=== PATIENT | male | born 1960 | race Caucasian/White ===

== ENCOUNTER → 2016-12-23 | Outpatient (CLI) | payer MEDICARE ==
[~2016-12-23] MED LIST: CYCL10TA9 PO; HYDR-2890 PO; HYDR-3720 PO; OXYC1TAB87 PO
--- NOTE | 2016-12-23 13:19 | Diagnostic Imaging Report ---
EXAMINATION: Two views of the right hip. INDICATION: Pelvic pain. Right hip pain. FINDINGS: There are prominent arthritic changes seen in the right hip. The erosive components are more prominent compared to the 07/31/2015 exam which raises the possibility of an erosive arthritis rather than degenerative osteoarthritis with subchondral cysts. There is moderate joint space narrowing of the medial aspect. Prominent lucency along the right aspect of the sacrum is probably exaggerated by overlying bowel loops with a poorly defined joint line seen. This could relate to erosions in the SI joints or fusion. IMPRESSION: Increased erosive component in the right hip joint is concerning for inflammatory arthritis. There is also suggestion of right-sided sacroiliitis or SI joint fusion. Dictated by: Dictated on workstation # [id number]
--- NOTE | 2016-12-23 13:52 | Diagnostic Imaging Report ---
INDICATION: Chronic low back pain. Right hip pain. No known injury. TECHNIQUE: AP, Lateral and Spot imaging of the lumbar spine CORRELATION STUDY: 02/09/2015. FINDINGS: Lumbar spinal alignment and curvature relatively anatomic. Lumbar vertebral body heights are maintained. Diffuse thin bridging syndesmophytes are noted throughout the lumbar spine. Disc spaces overall appear to be fairly stable and relatively anatomic. Mild asymmetric disc space narrowing suggested at L5-S1 level. There are diffuse hypertrophic changes about the posterior elements. There appears to be likely ossification through the posterior elements as well. There is some ossification superimposed over the neural foramina. There may also be a somewhat overall small spinal canal. SI joints are also fused. Cholecystectomy clips in the right upper quadrant. Additional clips over the left hemipelvis. IMPRESSION: 1. Negative for acute abnormality about the lumbar spine. 2. There is again noted diffuse thin syndesmophytes and fusion across the disc spaces of the lumbar spine as well as bilateral sacroiliac joint fusion. Features are most consistent with underlying ankylosing spondylolysis. 3. Additionally, there appears to be likely bony fusion across the posterior elements with some prominent appearance with hypertrophic facet arthropathy. Patient is suspected to be with narrowing of the spinal canal and/or foramina as well. Also there may be chronically narrowed spinal canal accentuating this narrowing. Dictated by: Dictated on workstation # [id number]
== END ==
LOC: RAD 12:40
PROVIDERS: ATTEND Nurse Practitioner Family
DX: M85.88 Other specified disorders of bone density and structure, other site (principal); M25.78 Osteophyte, vertebrae; M48.06 Spinal stenosis, lumbar region; Z90.49 Acquired absence of other specified parts of digestive tract
CPT/HCPCS: 72100; 73502

== ENCOUNTER → 2017-01-29 | Outpatient (CLI) | payer MEDICARE ==
[~2017-01-29] MED LIST changes: +GADOBUTROL 7.5 MMOL/7.5 ML (GADAVIST) VIAL IV ONE
--- NOTE | 2017-01-29 15:26 | Diagnostic Imaging Report ---
CLINICAL INDICATION: Patient states that he has been falling. Patient has no history of brain surgery but has previous cervical spine surgeries. EXAM: MRI of the brain performed without and with 5 cc of Gadavist IV contrast. Sequences include axial DWI, ADC map, coronal gradient echo, axial T2, axial FLAIR, axial T1, axial T1 post IV contrast, coronal T1 fat-sat post IV contrast, and sagittal T1 post IV contrast. COMPARISON: None. FINDINGS: There is no evidence of acute cerebral infarct, intracranial hemorrhage, or gross mass effect. There are multiple focal areas of high T2 signal white matter changes in the subcortical and deep white matter of both cerebral hemispheres with the frontal lobes affected the most. These are suspected to be related to chronic small vessel ischemic disease. There is normal macdonald-white matter distinction. The brain parenchymal volume appears appropriate for patient's age. There is no significant midline shift or herniation. The pituitary gland, sella, and suprasellar regions are unremarkable as visualized. The [place] of Prakash vascular structures show no gross abnormality as visualized. There is no evidence of hydrocephalus. Small cavum septum pellucidum is seen. The basal cisterns are unremarkable. The skull, extracranial soft tissue, and orbits are unremarkable. There is mild mucosal thickening involving the ethmoid sinus and left maxillary sinus. IMPRESSION: 1: Unremarkable MRI of the brain for age. There is no abnormal IV contrast enhancement. 2: There is mild brain parenchymal chronic small vessel ischemic disease. Dictated by: Dictated on workstation # [id number]
== END ==
LOC: RAD 08:55
DX: R26.89 Other abnormalities of gait and mobility (principal)
CPT/HCPCS: 70553

== ENCOUNTER → 2017-02-05 | Outpatient (CLI) | payer MEDICARE ==
[~2017-02-05] MED LIST changes: -GADOBUTROL 7.5 MMOL/7.5 ML (GADAVIST) VIAL IV ONE
--- NOTE | 2017-02-05 20:13 | Diagnostic Imaging Report ---
EXAMINATION: AP and frog lateral views of the right hip. INDICATION: Fall. Extreme hip pain. FINDINGS: There is severe right hip osteoarthritis changes with sclerosis and subchondral cyst formation seen. There is a prominent erosive component seen similar to 12/23/16. No fracture or dislocation. No radiopaque foreign body. Mild degenerative changes at the symphysis pubis are seen. IMPRESSION: Erosive and sclerotic changes are seen in the right hip similar to 12/23/16. 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 Correlate clinically. Dictated by: Dictated on workstation # [id number]
== END ==
LOC: RAD 14:54
DX: M16.11 Unilateral primary osteoarthritis, right hip (principal)
CPT/HCPCS: 73502

== ENCOUNTER 2017-03-26 11:28 | Outpatient (RCR) | payer MEDICARE | END 2017-04-07 16:41 | disposition home or self-care (01) | PROVIDERS: ATTEND Orthopaedic Surgery | DX: M16.11 Unilateral primary osteoarthritis, right hip (principal); M45.9 Ankylosing spondylitis of unspecified sites in spine ==

== ENCOUNTER 2017-05-19 18:14 | Emergency (ER) | payer MEDICARE ==
[~2017-05-19] VITALS: Ht 165.1 cm; Wt 57.2 kg
--- OUTSIDE RECORDS SUMMARY | 2017-05-19 18:24 | XMS REPORT | Continuity of Care Document ---
Author Author [facility] Organization [facility] Address Unknown Phone Unavailable Allergies Active Description Code Type Severity Reaction Onset Reported/Identified Relationship to Patient Clinical Status Yes No Known Drug Allergies [id number] Drug Allergy Unknown N/A 07/10/2011 Medications There is no data. 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 07/10/2011 Ot 724.2 LUMBAGO 09/07/2012 Ot 238.71 ESSENTIAL THROMBOCYTHEMIA 09/07/2012 Ot 272.4 HYPERLIPIDEMIA NEC/NOS 09/07/2012 Ot 288.60 LEUKOCYTOSIS , UNSPECIFIED 09/07/2012 Ot 716.90 ARTHROPATHY NOS-UNSPEC 09/07/2012 Ot 723.1 CERVICALGIA 09/07/2012 Ot V45.4 ARTHRODESIS STATUS 09/07/2012 Ot V58.69 OTH MED,LT, CURRENT USE 11/26/2014 Ot 719.41 11/26/2014 Ot 959.2 11/26/2014 Ot E000.8 11/26/2014 Ot E849.0 11/26/2014 Ot E928.9 11/26/2014 Ot 723.1 11/26/2014 Ot 720.0 11/26/2014 Ot 722.0 11/26/2014 Ot 305.1 11/26/2014 Ot 783.21 11/26/2014 Ot 786.2 11/26/2014 Ot 288.60 11/26/2014 Ot 288.60 11/26/2014 Ot 288.60 11/26/2014 Ot 733.90 11/26/2014 Ot V45.4 11/26/2014 Ot 719.41 11/26/2014 Ot 288.60 11/26/2014 LOUIE LOPEZ, NOMAN Haines Ot 723.1 CERVICALGIA 11/26/2014 Ot 719.41 11/26/2014 Ot 959.2 11/26/2014 Ot E000.8 11/26/2014 Ot E849.0 11/26/2014 Ot E928.9 11/26/2014 Ot 723.1 11/26/2014 Ot 720.0 11/26/2014 Ot 722.0 11/26/2014 Ot 305.1 11/26/2014 Ot 783.21 11/26/2014 Ot 786.2 11/26/2014 Ot 288.60 11/26/2014 Ot 288.60 11/26/2014 Ot 288.60 11/26/2014 Ot 733.90 11/26/2014 Ot V45.4 11/26/2014 Ot 719.41 11/26/2014 Ot 288.60 11/26/2014 Ot 719.41 11/26/2014 Ot 959.2 11/26/2014 Ot E000.8 11/26/2014 Ot E849.0 11/26/2014 Ot E928.9 11/26/2014 Ot 723.1 11/26/2014 Ot 720.0 11/26/2014 Ot 722.0 11/26/2014 Ot 305.1 11/26/2014 Ot 783.21 11/26/2014 Ot 786.2 11/26/2014 Ot 288.60 11/26/2014 Ot 288.60 11/26/2014 Ot 288.60 11/26/2014 Ot 733.90 11/26/2014 Ot V45.4 11/26/2014 Ot 719.41 11/26/2014 Ot 288.60 12/27/2014 Ot 719.41 12/27/2014 Ot 959.2 12/27/2014 Ot E000.8 12/27/2014 Ot E849.0 12/27/2014 Ot E928.9 12/27/2014 Ot 723.1 12/27/2014 Ot 720.0 12/27/2014 Ot 722.0 12/27/2014 Ot 305.1 12/27/2014 Ot 783.21 12/27/2014 Ot 786.2 12/27/2014 Ot 288.60 12/27/2014 Ot 288.60 12/27/2014 Ot 288.60 12/27/2014 Ot 733.90 12/27/2014 Ot V45.4 12/27/2014 Ot 719.41 12/27/2014 Ot 288.60 12/27/2014 JANIYA CAMPOS APRN Ot 723.1 12/27/2014 JANIYA CAMPOS APRN Ot V45.4 12/27/2014 JANIYA CAMPOS APRN Ot 723.1 12/27/2014 JANIYA CAMPOS APRN Ot V45.4 12/27/2014 Ot 719.41 12/27/2014 Ot 959.2 12/27/2014 Ot E000.8 12/27/2014 Ot E849.0 12/27/2014 Ot E928.9 12/27/2014 Ot 723.1 12/27/2014 Ot 720.0 12/27/2014 Ot 722.0 12/27/2014 Ot 305.1 12/27/2014 Ot 783.21 12/27/2014 Ot 786.2 12/27/2014 Ot 288.60 12/27/2014 Ot 288.60 12/27/2014 Ot 288.60 12/27/2014 Ot 733.90 12/27/2014 Ot V45.4 12/27/2014 Ot 719.41 12/27/2014 Ot 288.60 12/27/2014 JANIYA CAMPOS APRN Ot 723.1 12/27/2014 JANIYA CAMPOS APRN Ot V45.4 12/27/2014 Ot 719.41 12/27/2014 Ot 959.2 12/27/2014 Ot E000.8 12/27/2014 Ot E849.0 12/27/2014 Ot E928.9 12/27/2014 Ot 723.1 12/27/2014 Ot 720.0 12/27/2014 Ot 722.0 12/27/2014 Ot 305.1 12/27/2014 Ot 783.21 12/27/2014 Ot 786.2 12/27/2014 Ot 288.60 12/27/2014 Ot 288.60 12/27/2014 Ot 288.60 12/27/2014 Ot 733.90 12/27/2014 Ot V45.4 12/27/2014 Ot 719.41 12/27/2014 Ot 288.60 12/27/2014 JANIYA CAMPOS APRN Ot 723.1 12/27/2014 JANIYA CAMPOS APRN Ot V45.4 12/27/2014 Ot 719.41 12/27/2014 Ot 959.2 12/27/2014 Ot E000.8 12/27/2014 Ot E849.0 12/27/2014 Ot E928.9 12/27/2014 Ot 723.1 12/27/2014 Ot 720.0 12/27/2014 Ot 722.0 12/27/2014 Ot 305.1 12/27/2014 Ot 783.21 12/27/2014 Ot 786.2 12/27/2014 Ot 288.60 12/27/2014 Ot 288.60 12/27/2014 Ot 288.60 12/27/2014 Ot 733.90 12/27/2014 Ot V45.4 12/27/2014 Ot 719.41 12/27/2014 Ot 288.60 12/27/2014 JANIYA CAMPOS RN BEHAVIOR[facility] Ot 723.1 12/27/2014 JANIYA CAMPOS APRN Ot V45.4 02/09/2015 Ot 719.41 02/09/2015 Ot 959.2 02/09/2015 Ot E000.8 02/09/2015 Ot E849.0 02/09/2015 Ot E928.9 02/09/2015 Ot 723.1 02/09/2015 Ot 720.0 02/09/2015 Ot 722.0 02/09/2015 Ot 305.1 02/09/2015 Ot 783.21 02/09/2015 Ot 786.2 02/09/2015 Ot 288.60 02/09/2015 Ot 288.60 02/09/2015 Ot 288.60 02/09/2015 Ot 733.90 02/09/2015 Ot V45.4 02/09/2015 Ot 719.41 02/09/2015 Ot 288.60 02/09/2015 JANIYA CAMPOS RN [facility] Ot 723.1 02/09/2015 JANIYA CAMPOS APRN Ot V45.4 03/01/2015 JANIYA CAMPOS RN [facility] Ot 715.35 03/01/2015 JANIYA CAMPOS RN [facility] Ot 724.2 03/08/2015 JANIYA CAMPOS APRN Ot 719.45 08/18/2015 JANIYA CAMPOS [facility] Ot M81.0 08/22/2015 ALBERT LOPZE, ALEKSANDER Marte Ot M25.511 08/22/2015 ALBERT LOPEZ, ALEKSANDER Marte Ot M25.551 09/06/2015 JANIYA CAMPOS RN [facility] Ot M81.0 10/05/2015 Ot 723.1 CERVICALGIA 10/05/2015 Ot 720.0 ANKYLOSING SPONDYLITIS 10/05/2015 Ot 722.0 CERVICAL DISC DISPLACMNT 10/05/2015 Ot 305.1 TOBACCO USE DISORDER 10/05/2015 Ot 783.21 LOSS OF WEIGHT 10/05/2015 Ot 786.2 COUGH 10/05/2015 Ot 288.60 LEUKOCYTOSIS , UNSPECIFIED 10/05/2015 Ot 288.60 LEUKOCYTOSIS , UNSPECIFIED 10/05/2015 Ot 288.60 LEUKOCYTOSIS , UNSPECIFIED 10/05/2015 Ot 733.90 BONE CARTILAGE DIS NOS 10/05/2015 Ot V45.4 ARTHRODESIS STATUS 10/05/2015 Ot 719.41 JOINT PAIN- SHLDER 10/05/2015 Ot 288.60 LEUKOCYTOSIS , UNSPECIFIED 10/05/2015 JANIYA CAMPOS APRN Ot 723.1 CERVICALGIA 10/05/2015 JANIYA CAMPOS APRN Ot V45.4 ARTHRODESIS STATUS 10/05/2015 JANIYA CAMPOS APRN Ot 715.35 LOC OSTEOARTH NOS-PELVIS 10/05/2015 JANIYA CAMPOS APRN Ot 724.2 LUMBAGO 10/05/2015 JANIYA CAMPOS APRN Ot 719.45 JOINT PAIN-PELVIS 10/05/2015 ALBERT LOPEZ, ALEKSANDER Marte Ot M25.511 PAIN IN RIGHT SHOULDER 10/05/2015 ALEKSANDER PRICE MD Ot M25.551 PAIN IN RIGHT HIP 10/05/2015 JANIYA CAMPOS APRN Ot M81.0 AGE-RELATED OSTEOPOROSIS W/O CURRENT PAT 12/23/2016 Ot 288.60 LEUKOCYTOSIS , UNSPECIFIED 12/23/2016 Ot 733.90 BONE CARTILAGE DIS NOS 12/23/2016 Ot V45.4 ARTHRODESIS STATUS 12/23/2016 Ot 719.41 JOINT PAIN- SHLDER 12/23/2016 Ot 288.60 LEUKOCYTOSIS , UNSPECIFIED 12/23/2016 JANIYA CAMPOS RN [facility] Ot 723.1 CERVICALGIA 12/23/2016 JANIYA CAMPOS APRN Ot V45.4 ARTHRODESIS STATUS 12/23/2016 JANIYA CAMPOS APRN Ot 715.35 LOC OSTEOARTH NOS-PELVIS 12/23/2016 JANIYA CAMPOS APRN Ot 724.2 LUMBAGO 12/23/2016 JANIYA CAMPOS APRN Ot 719.45 JOINT PAIN-PELVIS 12/23/2016 ALEKSANDER PRICE MD Ot M25.511 PAIN IN RIGHT SHOULDER 12/23/2016 ALEKSANDER PRICE MD Ot M25.551 PAIN IN RIGHT HIP 12/23/2016 JANIYA CAMPOS APRN Ot M81.0 AGE-RELATED OSTEOPOROSIS W/O CURRENT PAT 01/21/2017 JANIYA CAMPOS APRN Ot M25.78 OSTEOPHYTE, VERTEBRAE 01/21/2017 JANIYA CAMPOS APRN Ot M48.06 SPINAL STENOSIS, LUMBAR REGION 01/21/2017 JANIYA CAMPOS APRN Ot M85.88 OT DISRD OF BONE DENSITY AND STRUCTURE, 01/21/2017 JANIYA CAMPOS APRN Ot Z90.49 ACQUIRED ABSENCE OF OTHER SPECIFIED PART 02/19/2017 ALEKSANDER PRICE MD Ot R26.89 OTHER ABNORMALITIES OF GAIT AND MOBILITY 03/03/2017 ALEKSANDER PRICE MD Ot M16.11 UNILATERAL PRIMARY OSTEOARTHRITIS, RIGHT 03/07/2017 KAYLIN MCCLELLAN MD Ot M16.11 UNILATERAL PRIMARY OSTEOARTHRITIS, RIGHT 03/07/2017 KAYLIN MCCLELLAN MD Ot M45.9 ANKYLOSING SPONDYLITIS OF UNSPECIFIED SI 04/07/2017 KAYLIN MCCLELLAN MD Ot M16.11 UNILATERAL PRIMARY OSTEOARTHRITIS, RIGHT 04/07/2017 KAYLIN MCCLELLAN MD, Ot M45.9 ANKYLOSING SPONDYLITIS OF UNSPECIFIED SI Procedures There is no data. Results There is no data. Encounters ACCT No. Visit Date/Time Discharge Status Pt. Type Provider Facility Loc./Unit Complaint [id number] 03/26/2017 11:28:00 04/07/2017 16:41:00 DIS Outpatient KAYLIN MCCLELLAN MD [facility] REHAB ADVANCED OA R HIP; ANKYLOSING SPONDYLITIS [id number] 02/05/2017 14:54:00 02/05/2017 23:59:59 CLS Outpatient ALEKSANDER PRICE MD [facility] RAD S73.101A [id number] 01/29/2017 08:55:00 01/29/2017 23:59:59 CLS Outpatient ALEKSANDER PRICE MD [facility] RAD R26.89 [id number] 12/23/2016 12:40:00 12/23/2016 23:59:59 CLS Outpatient JANIYA CAMPOS RN [facility] RAD HIP PAIN LOW BACK PAIN [id number] 08/17/2015 11:11:00 08/17/2015 23:59:59 CLS Outpatient JANIYA CAMPOS RN [facility] RAD OSTEOPOROSIS [id number] 07/31/2015 09:44:00 07/31/2015 23:59:59 CLS Outpatient ALEKSANDER PRICE MD [facility] RAD PAIN IN RT SHOULDER, PAIN IN RT HIP [id number] 02/16/2015 12:07:00 02/16/2015 23:59:59 CLS Outpatient JANIYA CAMPOS RN [facility] RAD HIP PAIN [id number] 02/09/2015 13:06:00 02/09/2015 23:59:59 CLS Outpatient JANIYA CAMPOS RN [facility] RAD LBP,PAIN IN JOINT INVOLVING PELVIC REGION [id number] 11/30/2014 12:54:00 11/30/2014 23:59:59 CLS Outpatient JANIYA CAMPOS RN [facility] RAD CERVICAL PAIN, [id number] 11/26/2014 20:22:00 11/26/2014 21:00:00 DIS Emergency NOMAN PALMA MD [facility] ER PAIN NECK TO KNEES [id number] 09/08/2012 00:00:00 Document Registration [id number] 07/20/2012 09:08:00 Document Registration [id number] 07/03/2012 09:54:00 Document Registration [id number] 06/25/2012 09:35:00 Document Registration [id number] 07/10/2011 14:42:00 Document Registration [id number] 05/21/2011 09:48:00 Document Registration [id number] 05/14/2011 09:43:00 Document Registration [id number] 05/13/2011 09:18:00 Document Registration [id number] 04/01/2011 15:21:00 Document Registration [id number] 03/26/2011 15:12:00 Document Registration [id number] 01/08/2010 14:19:00 Document Registration
[2017-05-19] MEDS ORDERED: NS IV 1000 ML 1,000 ML IV SCH (20:00)
--- NOTE | 2017-05-19 20:00 | ED General ---
General Chief Complaint: Fever-Adult/Adol Stated Complaint: RT LEG PAIN POST OP,SORE THROAT Nursing Triage Note: PT C/O COUGH/CONGETSION/FEVER FOR A COUPLE OF DAYS. PT IS APPROX 1 WEEK S/P TRH. Nursing Sepsis Screen: No Definite Risk Source of Information: Patient Exam Limitations: No Limitations History of Present Illness Time Seen by Provider: 19:59 Initial Comments To ER with reports of a cough, congestion, fever for the past few days. Patient is one week post total right hip replacement. Cough is productive of phlegm. Also has some right leg swelling. Timing/Duration: 1-2 Days Severity: Moderate Allergies and Home Medications Allergies Coded Allergies: No Known Drug Allergies (Unverified , 07/10/11) Home Medications Hydrocodone Bit/Acetaminophen 1 Each Tablet, 1 EACH PO Q6H PRN, (Reported) Hydrocodone Bit/Acetaminophen 1 Each Tablet, 1 EACH PO Q4-6HR PRN for PAIN, #20 Prescribed by: NOMAN PALMA on 11/26/142039 Constitutional: see HPI, chills, fever EENTM: see HPI, nose congestion Respiratory: see HPI, cough Cardiovascular: no symptoms reported Genitourinary: no symptoms reported Musculoskeletal: no symptoms reported Skin: no symptoms reported Psychiatric/Neurological: No Symptoms Reported Hematologic/Lymphatic: No Symptoms Reported Past Uipsysa-Ejclgy-Jdhckw Hx Patient Social History Alcohol Use: Denies Use Recreational Drug Use: No Smoking Status: Current Everyday Smoker Type Used: Cigarettes 2nd Hand Smoke Exposure: No Recent Foreign Travel: No Contact w/Someone Who Travel: No Recent Infectious Disease Expo: No Recent Hopitalizations: Yes Seasonal Allergies Seasonal Allergies: No Surgeries Surgeries: Gallbladder, Orthopedic Respiratory History of Respiratory Disorde: No Cardiovascular History of Cardiac Disorders: No Neurological History of Neurological Disord: No Reproductive System Hx Reproductive Disorders: No Gastrointestinal History of Gastrointestinal Di: No Musculoskeletal History of Musculoskeletal Dis: Yes (NECK SX) Musculoskeletal Disorders: Arthritis Endocrine History of Endocrine Disorders: No Cancer History of Cancer: No Psychosocial History of Psychiatric Problem: No Integumentary History of Skin or Integumenta: No Blood Transfusions History of Blood Disorders: No Physical Exam Vital Signs Vital Sign - Last 12Hours 05/19/17 19:00 Temp 100.2 Pulse 76 Resp 18 B/P (MAP) 138/77 (97) Pulse Ox 97 O2 Delivery Room Air Capillary Refill : Less Than 3 Seconds General Appearance: No Apparent Distress, WD/WN Eyes: Bilateral Eye Normal Inspection, Bilateral Eye PERRL, Bilateral Eye EOMI HEENT: PERRL/EOMI, TMs Normal Neck: Full Range of Motion, Normal Inspection Respiratory: Normal Breath Sounds, No Accessory Muscle Use, No Respiratory Distress Cardiovascular: Regular Rate, Rhythm, Normal Peripheral Pulses Gastrointestinal: Normal Bowel Sounds, Non Tender, Soft Extremity: Normal Capillary Refill, Normal Inspection, Other (to the lateral right hip is a Tegaderm over the incision site. There is a fair amount of ecchymosis and swelling confined to the hip but no obvious drainage or erythema. ) Neurologic/Psychiatric: Alert, Oriented x3, No Motor/Sensory Deficits Skin: Normal Color, Warm/Dry Progress/Results/Core Measures Suspected Sepsis Recent Fever Within 48 Hours: Yes Infection Criteria Present: Suspected New Infection New/Unexplained Altered Menta: No Sepsis Screen: No Definite Risk Sepsis Diagnosis: SIRS Temperature:100.2 Pulse: 76 Respiratory Rate: 18 Laboratory Tests 05/19/17 20:49: White Blood Count 5.3 Blood Pressure 138 /77 Mean: 97 Laboratory Tests 05/19/17 20:49: Creatinine 0.73, Platelet Count 304 Results/Orders Lab Results Laboratory Tests Test 05/19/17 20:49 Range/Units White Blood Count 5.3 4.3-11.0 10^3/uL Red Blood Count 3.66 L 4.35-5.85 10^6/uL Hemoglobin 10.5 L 13.3-17.7 G/DL Hematocrit 32 L 40-54 % Mean Corpuscular Volume 87 80-99 FL Mean Corpuscular Hemoglobin 29 25-34 PG Mean Corpuscular Hemoglobin Concent 33 32-36 G/DL Red Cell Distribution Width 16.0 H 10.0-14.5 % Platelet Count 304 130-400 10^3/uL Mean Platelet Volume 9.5 7.4-10.4 FL Neutrophils (%) (Auto) 61 42-75 % Lymphocytes (%) (Auto) 23 12-44 % Monocytes (%) (Auto) 14 H 0-12 % Eosinophils (%) (Auto) 2 0-10 % Basophils (%) (Auto) 0 0-10 % Neutrophils # (Auto) 3.2 1.8-7.8 X 10^3 Lymphocytes # (Auto) 1.2 1.0-4.0 X 10^3 Monocytes # (Auto) 0.8 0.0-1.0 X 10^3 Eosinophils # (Auto) 0.1 0.0-0.3 10^3/uL Basophils # (Auto) 0.0 0.0-0.1 10^3/uL Sodium Level 138 135-145 MMOL/L Potassium Level 3.9 3.6-5.0 MMOL/L Chloride Level 100 98-107 MMOL/L Carbon Dioxide Level 27 21-32 MMOL/L Anion Gap 11 5-14 MMOL/L Blood Urea Nitrogen 7 7-18 MG/DL Creatinine 0.73 0.60-1.30 MG/DL Estimat Glomerular Filtration Rate > 60 BUN/Creatinine Ratio 10 Glucose Level 100 70-105 MG/DL Calcium Level 8.2 L 8.5-10.1 MG/DL Micro Results Microbiology 05/19/17 Influenza Types A,B Antigen (NILA) - Final, Complete My Orders Orders - BRYNN BORREGO APRN Influenza A And B Antigens (05/19/17 19:39) Chest Pa/Lat (2 View) (05/19/17 19:39) Saline Lock/Iv-Start (05/19/17 19:58) Cbc With Automated Diff (05/19/17 19:58) Basic Metabolic Panel (05/19/17 19:58) Ns Iv 1000 Ml (Sodium Chloride 0.9%) (05/19/17 20:00) Us Venous Lower Ext Rt (05/19/17 19:58) Vital Signs/I&O Vital Sign - Last 12Hours 05/19/17 19:00 Temp 100.2 Pulse 76 Resp 18 B/P (MAP) 138/77 (97) Pulse Ox 97 O2 Delivery Room Air Capillary Refill : Less Than 3 Seconds Blood Pressure Mean: 97 Diagnostic Imaging Diagonstic Imaging: Xray Plain Films/CT/US/NM/MRI: chest Comments NAME: ROSHAN ORTEGA [facility] REC#: [id number] PT STATUS: REG ER : 1960 PHYSICIAN: BRYNN BORREGO APRN ADMIT DATE: 05/19/17/ER Draft Date of Exam:05/19/17 CHEST PA/LAT (2 VIEW) INDICATION: Weakness, fever. COMPARISON: 05/13/2011. FINDINGS: Frontal and lateral views of the chest demonstrate small effusion in the left lung base. No obvious infiltrate is identified. The heart is normal. The right lung is clear. There is no pneumothorax. IMPRESSION: Small effusion in the left lung base. Followup recommended. Dictated on workstation # [id number] Dict: 05/19/172002 Trans: 05/19/172006 [facility] [id number] Interpreted by: ANDRY MOROCHO Electronically signed by: Departure Impression Impression: Primary Impression: Postoperative pain Additional Impression: Bronchitis Disposition: HOME, SELF-CARE Condition: Stable (yes) Departure-Patient Inst. Decision time for Depature: 21:05 Referrals: ALEKSANDER PRICE MD (PCP/Family) Primary Care Physician Patient Instructions: Acute Bronchitis, Adult (DC) Add. Discharge Instructions: 1. Use Benadryl as needed for nasal congestion. Your hydrocodone prescription should help control the cough. We will also prescribe an antibiotic. All discharge instructions reviewed with patient and/or family. Voiced understanding. Scripts Cephalexin (Keflex) 500 Mg Capsule 500 MG PO TID, #15 CAP Prov: BRYNN BORREGO [employer] 05/19/17 BRYNN BORREGO [employer] May 19, 2017 20:00
--- NOTE | 2017-05-19 20:07 | Diagnostic Imaging Report ---
INDICATION: Weakness, fever. COMPARISON: 05/13/2011. FINDINGS: Frontal and lateral views of the chest demonstrate small effusion in the left lung base. No obvious infiltrate is identified. The heart is normal. The right lung is clear. There is no pneumothorax. IMPRESSION: Small effusion in the left lung base. Followup recommended. Dictated by: Dictated on workstation # [id number]
[2017-05-19 21:00] LABS: BASOPHILS % (AUTO) 0 % (0-10); EOSINOPHILS # (AUTO) 0.1 10^3/uL (0.0-0.3); EOSINOPHILS % (AUTO) 2 % (0-10); LYMPHOCYTES # (AUTO) 1.2 X 10^3 (1.0-4.0); LYMPHOCYTES % (AUTO) 23 % (12-44); MEAN CORPUSCULAR HEMOGLOBIN 29 PG (25-34); MEAN CORPUSCULAR HGB CONC 33 G/DL (32-36); MEAN CORPUSCULAR VOLUME 87 FL (80-99); MEAN PLATELET VOLUME 9.5 FL (7.4-10.4); MONOCYTES # (AUTO) 0.8 X 10^3 (0.0-1.0); MONOCYTES % (AUTO) 14 % (0-12); NEUTROPHILS # (AUTO) 3.2 X 10^3 (1.8-7.8); NEUTROPHILS % (AUTO) 61 % (42-75); PLATELET COUNT 304 10^3/uL (130-400); RED BLOOD COUNT 3.66 10^6/uL (4.35-5.85); WHITE BLOOD COUNT 5.3 10^3/uL (4.3-11.0)
--- NOTE | 2017-05-19 21:02 | Diagnostic Imaging Report ---
PROCEDURE: US right lower extremity venous. TECHNIQUE: Multiple real-time grayscale images were obtained over the right lower extremity in various projections. Additional duplex Doppler and color Doppler images were also obtained. INDICATION: Right lower extremity swelling and pain. COMPARISON: None. FINDINGS: The visualized deep and superficial venous system is patent. There is no mass or DVT. IMPRESSION: Negative right lower extremity venous Doppler. Dictated by: Dictated on workstation # [id number]
[2017-05-19 21:16] LABS: ANION GAP 11 MMOL/L (5-14); BLOOD UREA NITROGEN 7 MG/DL (7-18); BUN/CREATININE RATIO 10; CALCIUM 8.2 MG/DL (8.5-10.1); CARBON DIOXIDE 27 MMOL/L (21-32); CHLORIDE 100 MMOL/L (98-107); CREATININE SERUM 0.73 MG/DL (0.60-1.30); GFR ESTIMATED > 60; GLUCOSE 100 MG/DL (70-105); POTASSIUM 3.9 MMOL/L (3.6-5.0); SODIUM 138 MMOL/L (135-145)
[2017-05-19] MEDS ORDERED: CEPH-507 PO (21:22)
[2017-05-19 21:32] VITALS: BP 138/77
== END 2017-05-19 21:32 | disposition home or self-care (01) ==
LOC: EDUNIT# 18:14 → ER 18:16
DX: M25.551 Pain in right hip (principal); G89.18 Other acute postprocedural pain; J40 Bronchitis, not specified as acute or chronic; F17.210 Nicotine dependence, cigarettes, uncomplicated; Z96.641 Presence of right artificial hip joint
CPT/HCPCS: 36415; 71020; 80048; 85025; 87804; 99282

== ENCOUNTER → 2017-07-18 | Outpatient (CLI) | payer MEDICARE ==
[~2017-07-18] MED LIST changes: +CEPH-507 PO
--- NOTE | 2017-07-18 12:39 | Diagnostic Imaging Report ---
INDICATION: Followup bilateral hip pain. TIME OF EXAM: 12:23 PM FINDINGS: Postop changes of right hip arthroplasty are noted. The prosthetic elements appear to be in good position without fracture or loosening. Both hips show normal femoral acetabular alignment. Left hip is intact. The rami are intact. There appears to be ankylosis of the SI joints. IMPRESSION: No acute bony abnormalities detected. Dictated by: Dictated on workstation # [id number]
--- NOTE | 2017-07-18 12:50 | Diagnostic Imaging Report ---
INDICATION: Fall with back pain. TIME OF EXAMINATION: 12:22 p.m. FINDINGS: Three views of the lumbar spine were obtained. Curvature and alignment is normal. The vertebral body heights are maintained. No acute compression fracture seen. Disc spaces are fairly well maintained. Bridging osteophytes throughout the lumbar spine are again noted, suggestive of ankylosing spondylitis. There appears to be ankylosis of the SI joints bilaterally. Aortic calcifications are present. IMPRESSION: Chronic changes, as described similar to the exam from 12/23/2016 with manifestations suggestive of ankylosing spondylitis. No acute bony abnormality is detected. Dictated by: Dictated on workstation # [id number]
== END ==
LOC: RAD 11:39
PROVIDERS: ATTEND Nurse Practitioner Family
DX: M54.5 Low back pain (principal); M25.551 Pain in right hip; M25.552 Pain in left hip; W19.XXXA Unspecified fall, initial encounter; Z96.641 Presence of right artificial hip joint
CPT/HCPCS: 72100; 73521

== ENCOUNTER → 2017-08-13 | Outpatient (CLI) | payer OTHER, MEDICARE ==
--- NOTE | 2017-08-13 12:50 | Diagnostic Imaging Report ---
PROCEDURE: MR imaging cervical spine without contrast. INDICATION: Increased dizziness with history of prior cervical spine surgery. TECHNIQUE: Multiplanar, multisequence MR imaging of the cervical spine was performed without contrast. Correlation study: MRI 11/30/2014 Findings: Patient was reportedly unable to lay flat, requiring atypical positioning at time of imaging. Given this, the cervical spinal alignment is slightly reversed and otherwise anatomic. Postop changes anterior cervical decompression and fusion with plate and screws C3-C4 and C5 level are present. This again results in metallic susceptibility artifact. Nonfused vertebral bodies appear maintained in height. Cervical cranial junction unremarkable. Odontoid unremarkable. C2-C3 level demonstrates disc and osteophyte formation resulting in bilateral foraminal narrowing, mild in severity. Spinal canal is maintained. At C3-C4, C4-C5 levels which are fused demonstrates no significant canal stenosis. There does appear to be prominent osteophyte projecting into the right ventrolateral spinal canal at C4-C5 level resulting in significant narrowing. Left foramina appears maintained. C5-C6 level does appear to be fused across the disc space. No suggestion for significant canal or foraminal narrowing. There does appear to be signal abnormality within the cord. Presumed to be artifact, this does appear to be slightly thinned suspect for a focal area of myelomalacia. At C6-C7 demonstrate preservation of disc space height at this time. No significant canal narrowing. Mild foraminal narrowing owing to osteophyte formation. C7-T1 level unremarkable. IMPRESSION: 1. Intracervical fusion C3-C5 with additional fusion across C6-C7 vertebral bodies. Alignment anatomic. 2. There is generalized small cervical spinal canal without asymmetric areas of stenosis. Multilevel neural foraminal narrowing as detailed above. 3. There does appear to be slight thinning of the cord C5-C6 level suggestive of a small area of perhaps myelomalacia. Dictated by: Dictated on workstation # [id number]
== END ==
LOC: RAD 09:02
PROVIDERS: ATTEND Nurse Practitioner Family
DX: M48.02 Spinal stenosis, cervical region (principal); Z98.890 Other specified postprocedural states
CPT/HCPCS: 72141

== ENCOUNTER → 2018-03-10 | Outpatient (CLI) | payer MEDICARE ==
--- NOTE | 2018-03-10 16:50 | Diagnostic Imaging Report ---
INDICATION: Fall with pain and swelling to the right forearm. TIME OF EXAM: 03:24 p.m. FINDINGS: Two views of the right forearm demonstrate normal alignment at the elbow and wrist. The radius and ulna appear to be intact. No fractures are seen. Soft tissues are unremarkable. IMPRESSION: No acute bony abnormality is detected. Dictated by: Dictated on workstation # [id number]
== END ==
LOC: RAD 14:36
PROVIDERS: ATTEND Nurse Practitioner Family
DX: M79.601 Pain in right arm (principal); M79.89 Other specified soft tissue disorders; W19.XXXA Unspecified fall, initial encounter
CPT/HCPCS: 73090

== ENCOUNTER 2018-11-27 10:18 | Emergency (ER) | payer MEDICARE ==
[~2018-11-27] VITALS: Ht 165.1 cm; Wt 62.1 kg
--- OUTSIDE RECORDS SUMMARY | 2018-11-27 10:24 | XMS REPORT | Continuity of Care Document ---
Author Organization Unknown Address Unknown Allergies Active Description Code Type Severity Reaction Onset Reported/Identified Relationship to Patient Clinical Status Yes No Known Drug Allergies [id number] Drug Allergy Unknown N/A 07/10/2011 Medications There is no data. 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 07/10/2011 Ot 724.2 LUMBAGO 09/07/2012 Ot 238.71 ESSENTIAL THROMBOCYTHEMIA 09/07/2012 Ot 272.4 HYPERLIPIDEMIA NEC/NOS 09/07/2012 Ot 288.60 LEUKOCYTOSIS, UNSPECIFIED 09/07/2012 Ot 716.90 ARTHROPATHY NOS- UNSPEC 09/07/2012 Ot 723.1 CERVICALGIA 09/07/2012 Ot V45.4 ARTHRODESIS STATUS 09/07/2012 Ot V58.69 OTH MED,LT,CURRENT USE 11/26/2014 Ot 719.41 11/26/2014 Ot 959.2 [...] 719.41 02/09/2015 Ot 288.60 02/09/2015 JANIYA CAMPOS APRN Ot 723.1 02/09/2015 JANIYA CAMPOS APRN Ot V45.4 03/01/2015 JANIYA CAMPOS APRN Ot 715.35 03/01/2015 JANIYA CAMPOS APRN Ot 724.2 03/08/2015 JANIYA CAMPOS APRN Ot 719.45 08/18/2015 JANIYA CAMPOS LATHE SET UP PERSON Ot M81.0 08/22/2015 ALBERT LOPEZ, ALEKSANDER Marte Ot M25.511 08/22/2015 ALBERT LOPEZ, ALEKSANDER Marte Ot M25.551 09/06/2015 JANIYA CAMPOS LATHE SET UP PERSON Ot M81.0 10/05/2015 Ot 723.1 CERVICALGIA 10/05/2015 Ot 720.0 ANKYLOSING SPONDYLITIS 10/05/2015 Ot 722.0 CERVICAL DISC DISPLACMNT 10/05/2015 Ot 305.1 TOBACCO USE DISORDER 10/05/2015 Ot 783.21 LOSS OF WEIGHT 10/05/2015 Ot 786.2 COUGH 10/05/2015 Ot 288.60 LEUKOCYTOSIS, UNSPECIFIED 10/05/2015 Ot 288.60 LEUKOCYTOSIS, UNSPECIFIED 10/05/2015 Ot 288.60 LEUKOCYTOSIS, UNSPECIFIED 10/05/2015 Ot 733.90 BONE CARTILAGE DIS NOS 10/05/2015 Ot V45.4 ARTHRODESIS STATUS 10/05/2015 Ot 719.41 JOINT PAIN-SHLDER 10/05/2015 Ot 288.60 LEUKOCYTOSIS, UNSPECIFIED 10/05/2015 JANIYA CAMPOS APRN Ot 723.1 CERVICALGIA 10/05/2015 JANIYA CAMPOS LATHE SET UP PERSON Ot V45.4 ARTHRODESIS STATUS 10/05/2015 JANIYA CAMPOS LATHE SET UP PERSON Ot 715.35 LOC OSTEOARTH NOS-PELVIS 10/05/2015 JANIYA CAMPOS LATHE SET UP PERSON Ot 724.2 LUMBAGO 10/05/2015 JANIYA CAMPOS LATHE SET UP PERSON Ot 719.45 JOINT PAIN-PELVIS 10/05/2015 ALBERT LOPEZ, ALEKSANDER Marte Ot M25.511 PAIN IN RIGHT SHOULDER 10/05/2015 ALEKSANDER PRICE MD Ot M25.551 PAIN IN RIGHT HIP 10/05/2015 JANIYA CAMPOS LATHE SET UP PERSON Ot M81.0 AGE-RELATED OSTEOPOROSIS W/O CURRENT PAT 12/23/2016 Ot 288.60 LEUKOCYTOSIS, UNSPECIFIED 12/23/2016 Ot 733.90 BONE CARTILAGE DIS NOS 12/23/2016 Ot V45.4 ARTHRODESIS STATUS 12/23/2016 Ot 719.41 JOINT PAIN-SHLDER 12/23/2016 Ot 288.60 LEUKOCYTOSIS, UNSPECIFIED 12/23/2016 JANIYA CAMPOS LATHE SET UP PERSON Ot 723.1 CERVICALGIA 12/23/2016 JANIYA CAMPOS LATHE SET UP PERSON Ot V45.4 ARTHRODESIS STATUS 12/23/2016 JANIYA CAMPOS LATHE SET UP PERSON Ot 715.35 LOC OSTEOARTH NOS-PELVIS 12/23/2016 CAMPOS LEONARDRAZA Alonso LATHE SET UP PERSON Ot 724.2 LUMBAGO 12/23/2016 JANIYA CAMPOS APRN Ot 719.45 JOINT PAIN-PELVIS 12/23/2016 ALBERT LOPEZ, ALEKSANDER Marte Ot M25.511 PAIN IN RIGHT SHOULDER 12/23/2016 ALEKSANDER PRICE MD Ot M25.551 PAIN IN RIGHT HIP 12/23/2016 JANIYA CAMPOS APRN Ot M81.0 AGE-RELATED OSTEOPOROSIS W/O CURRENT PAT 01/21/2017 JANIYA CAMPOS LATHE SET UP PERSON Ot M25.78 OSTEOPHYTE, VERTEBRAE 01/21/2017 BETH LEONARDCIPRIANO VIVEROSN Ot M48.06 SPINAL STENOSIS, LUMBAR REGION 01/21/2017 JANIYA CAMPOS APRN Ot M85.88 OTH DISRD OF BONE DENSITY AND STRUCTURE, 01/21/2017 [...] UNILATERAL PRIMARY OSTEOARTHRITIS, RIGHT 04/07/2017 KAYLIN MCCLELLAN MD Ot M45.9 ANKYLOSING SPONDYLITIS OF UNSPECIFIED SI 05/19/2017 BRYNN BORREGO APRN Ot F17.210 NICOTINE DEPENDENCE, CIGARETTES, UNCOMPL 05/19/2017 BRYNN BORREGO APRN Ot G89.18 OTHER ACUTE POSTPROCEDURAL PAIN 05/19/2017 BRYNN BORREGO APRN Ot J40 BRONCHITIS, NOT SPECIFIED ACUTE OR CH 05/19/2017 BRYNN BORREGO APRN Ot M25.551 PAIN IN RIGHT HIP 05/19/2017 BRYNN BORREGO APRN Ot Z96.641 PRESENCE OF RIGHT ARTIFICIAL HIP JOINT 05/22/2017 BRYNN BORREGO APRN Ot F17.210 NICOTINE DEPENDENCE, CIGARETTES, UNCOMPL 05/22/2017 BRYNN BORREGO APRN Ot G89.18 OTHER ACUTE POSTPROCEDURAL PAIN 05/22/2017 BRYNN BORREGO LATHE SET UP PERSON Ot J40 BRONCHITIS, NOT SPECIFIED ACUTE OR CH 05/22/2017 BRYNN BORREGO LATHE SET UP PERSON Ot M25.551 PAIN IN RIGHT HIP 05/22/2017 BRYNN BORREGO LATHE SET UP PERSON Ot Z96.641 PRESENCE OF RIGHT ARTIFICIAL HIP JOINT 07/21/2017 JANIYA CAMPOS LATHE SET UP PERSON Ot M25.551 PAIN IN RIGHT HIP 07/21/2017 JANIYA CAMPOS LATHE SET UP PERSON Ot M25.552 PAIN IN LEFT HIP 07/21/2017 JANIYA CAMPOS LATHE SET UP PERSON Ot M54.5 LOW BACK PAIN 07/21/2017 JANIYA CAMPOS LATHE SET UP PERSON Ot W19.XXXA UNSPECIFIED FALL, INITIAL ENCOUNTER 07/21/2017 JANIYA CAMPOS LATHE SET UP PERSON Ot Z96.641 PRESENCE OF RIGHT ARTIFICIAL HIP JOINT 08/14/2017 JANIYA CAMPOS LATHE SET UP PERSON Ot M48.02 SPINAL STENOSIS, CERVICAL REGION 08/14/2017 JANIYA CAMPOS LATHE SET UP PERSON Ot Z98.890 OTHER SPECIFIED POSTPROCEDURAL STATES 08/18/2017 JANIYA CAMPOS LATHE SET UP PERSON Ot M25.551 PAIN IN RIGHT HIP 08/18/2017 JANIYA CAMPOS LATHE SET UP PERSON Ot M25.552 PAIN IN LEFT HIP 08/18/2017 JANIYA CAMPOS LATHE SET UP PERSON Ot M54.5 LOW BACK PAIN 08/18/2017 JANIYA CAMPOS LATHE SET UP PERSON Ot W19.XXXA UNSPECIFIED FALL, INITIAL ENCOUNTER 08/18/2017 JANIYA CAMPOS LATHE SET UP PERSON Ot Z96.641 PRESENCE OF RIGHT ARTIFICIAL HIP JOINT 12/12/2017 JANIYA CAMPOS LATHE SET UP PERSON Ot M48.02 SPINAL STENOSIS, CERVICAL REGION 12/12/2017 JANIYA CAMPOS LATHE SET UP PERSON Ot Z98.890 OTHER SPECIFIED POSTPROCEDURAL STATES 03/10/2018 JANIYA CAMPOS LATHE SET UP PERSON Ot 723.1 CERVICALGIA 03/10/2018 JANIYA CAMPOS LATHE SET UP PERSON Ot V45.4 ARTHRODESIS STATUS 03/10/2018 JANIYA CAMPOS LATHE SET UP PERSON Ot 715.35 LOC OSTEOARTH NOS-PELVIS 03/10/2018 JANIYA CAMPOS LATHE SET UP PERSON Ot 724.2 LUMBAGO 03/10/2018 JANIYA CAMPOS LATHE SET UP PERSON Ot 719.45 JOINT PAIN-PELVIS 03/10/2018 ALBERT LOPEZ, ALEKSANDER Marte Ot M25.511 PAIN IN RIGHT SHOULDER 03/10/2018 ALBERT LOPEZ, ALEKSANDER Marte Ot M25.551 PAIN IN RIGHT HIP 03/10/2018 JANIYA CAMPOS LATHE SET UP PERSON Ot M81.0 AGE-RELATED OSTEOPOROSIS W/O CURRENT PAT 03/10/2018 BETH LEONARDRAZA Alonso LATHE SET UP PERSON Ot M25.78 OSTEOPHYTE, VERTEBRAE 03/10/2018 JANIYA CAMPOS LATHE SET UP PERSON Ot M48.06 SPINAL STENOSIS, LUMBAR REGION 03/10/2018 BETH LEONARDRAZA Alonso LATHE SET UP PERSON Ot M85.88 OTH DISRD OF BONE DENSITY AND STRUCTURE, 03/10/2018 BETH LEONARDRAZA Alonso LATHE SET UP PERSON Ot Z90.49 ACQUIRED ABSENCE OF OTHER SPECIFIED PART 03/10/2018 ALBERT LOPEZ, ALEKSANDER Marte Ot R26.89 OTHER ABNORMALITIES OF GAIT AND MOBILITY 03/10/2018 ALBERT LOPEZ, ALEKSANDER Marte Ot M16.11 UNILATERAL PRIMARY OSTEOARTHRITIS, RIGHT 03/10/2018 BETH LEONARDRAZA Alonso LATHE SET UP PERSON Ot M25.551 PAIN IN RIGHT HIP 03/10/2018 BETH LEONARDRAZA Alonso LATHE SET UP PERSON Ot M25.552 PAIN IN LEFT HIP 03/10/2018 BETH LEONARDRAZA Alonso LATHE SET UP PERSON Ot M54.5 LOW BACK PAIN 03/10/2018 BETH LEONARDRAZA Alonso LATHE SET UP PERSON Ot W19.XXXA UNSPECIFIED FALL, INITIAL ENCOUNTER 03/10/2018 BETH LEONARDRAZA Alonso LATHE SET UP PERSON Ot Z96.641 PRESENCE OF RIGHT ARTIFICIAL HIP JOINT 03/10/2018 JANIYA CAMPOS LATHE SET UP PERSON Ot M48.02 SPINAL STENOSIS, CERVICAL REGION 03/10/2018 JANIYA CAMPOS LATHE SET UP PERSON Ot Z98.890 OTHER SPECIFIED POSTPROCEDURAL STATES 03/11/2018 WILLIE YOUNGER LATHE SET UP PERSON Ot M79.601 PAIN IN RIGHT ARM 03/11/2018 WILLIE YOUNGER LATHE SET UP PERSON Ot M79.89 OTHER SPECIFIED SOFT TISSUE DISORDERS 03/11/2018 WILLIE YOUNGER LATHE SET UP PERSON Ot W19.XXXA UNSPECIFIED FALL, INITIAL ENCOUNTER 04/03/2018 WILLIE YOUNGER LATHE SET UP PERSON Ot M79.601 PAIN IN RIGHT ARM 04/03/2018 WILLIE YOUNGER LATHE SET UP PERSON Ot M79.89 OTHER SPECIFIED SOFT TISSUE DISORDERS 04/03/2018 WILLIE YOUNGER LATHE SET UP PERSON Ot W19.XXXA UNSPECIFIED FALL, INITIAL ENCOUNTER 09/30/2018 JANIYA CAMPOS N LATHE SET UP PERSON Ot M48.02 SPINAL STENOSIS, CERVICAL REGION 09/30/2018 JANIYA CAMPOS N LATHE SET UP PERSON Ot Z98.890 OTHER SPECIFIED POSTPROCEDURAL STATES Procedures There is no data. Results Test Result Range Influenza virus A and B antigen detection - 05/19/17 19:55 FLU RESULT NEGATIVE FOR INFLUENZA A AND B ANTIGENS BY IA NR Whole blood basic metabolic panel - 05/19/17 20:49 Serum or plasma sodium measurement (moles/volume) 138 mmol/L 135-145 Serum or plasma potassium measurement (moles/volume) 3.9 mmol/L 3.6-5.0 Serum or plasma chloride measurement (moles/volume) 100 mmol/L 98-107 Carbon dioxide 27 mmol/L 21-32 Serum or plasma anion gap determination (moles/volume) 11 mmol/L 5-14 Serum or plasma urea nitrogen measurement (mass/volume) 7 mg/dL 7-18 Serum or plasma creatinine measurement (mass/volume) 0.73 mg/dL 0.60-1.30 Serum or plasma urea nitrogen/creatinine mass ratio 10 NRG Serum or plasma creatinine measurement with calculation of estimated glomerular filtration rate > NRG Serum or plasma glucose measurement (mass/volume) 100 mg/dL 70-105 Serum or plasma calcium measurement (mass/volume) 8.2 mg/dL 8.5-10.1 Complete blood count (CBC) with automated white blood cell (WBC) differential - 05/19/17 20:49 Blood leukocytes automated count (number/volume) 5.3 10*3/uL 4.3-11.0 Blood erythrocytes automated count (number/volume) 3.66 10*6/uL 4.35-5.85 Venous blood hemoglobin measurement (mass/volume) 10.5 g/dL 13.3-17.7 Blood hematocrit (volume fraction) 32 % 40-54 Automated erythrocyte mean corpuscular volume 87 [foz_us] 80-99 Automated erythrocyte mean corpuscular hemoglobin (mass per erythrocyte) 29 pg 25-34 Automated erythrocyte mean corpuscular hemoglobin concentration measurement (mass/volume) 33 g/dL 32-36 Automated erythrocyte distribution width ratio 16.0 % 10.0- 14.5 Automated blood platelet count (count/volume) 304 10*3/uL 130-400 Automated blood platelet mean volume measurement 9.5 [foz_us] 7.4-10.4 Automated blood neutrophils/100 leukocytes 61 % 42-75 Automated blood lymphocytes/100 leukocytes 23 % 12-44 Blood monocytes/100 leukocytes 14 % 0-12 Automated blood eosinophils/100 leukocytes 2 % 0-10 Automated blood basophils/100 leukocytes 0 % 0-10 Blood neutrophils automated count (number/volume) 3.2 10*3 1.8-7.8 Blood lymphocytes automated count (number/volume) 1.2 10*3 1.0-4.0 Blood monocytes automated count (number/volume) 0.8 10*3 0.0- 1.0 Automated eosinophil count 0.1 10*3/uL 0.0-0.3 Automated blood basophil count (count/volume) 0.0 10*3/uL 0.0-0.1 Encounters ACCT No. Visit Date/Time Discharge Status Pt. Type Provider Facility Loc./Unit Complaint [id number] 03/10/2018 14:36:00 03/10/2018 23:59:59 CLS Outpatient WILLIE YOUNGER APRN [facility] RAD M79.601 [id number] 08/13/2017 09:02:00 08/13/2017 23:59:59 CLS Outpatient JANIYA CAMPOS APRN [facility] RAD CHRONIC NECK PAIN [id number] 07/18/2017 11:39:00 07/18/2017 23:59:59 CLS Outpatient JANIYA CAMPOS APRN [facility] RAD M54.5 M25.551 M25.552 [id number] 05/19/2017 18:16:00 05/19/2017 21:32:00 DIS Emergency BRYNN BORREGO APRN [facility] ER RT LEG PAIN POST OP,SORE THROAT [id number] 03/26/2017 11:28:00 04/07/2017 16:41:00 DIS Outpatient KAYLIN MCCLELLAN MD [facility] REHAB ADVANCED OA R HIP; ANKYLOSING SPONDYLITIS [id number] 02/05/2017 14:54:00 02/05/2017 23:59:59 CLS Outpatient ALBERT LOPEZ, ALEKSANDER Marte [facility] RAD S73.101A [id number] 01/29/2017 08:55:00 01/29/2017 23:59:59 CLS Outpatient ALEKSANDER PRICE MD [facility] RAD R26.89 [id number] 12/23/2016 12:40:00 12/23/2016 23:59:59 CLS Outpatient JANIYA CAMPOS LATHE SET UP PERSON [facility] RAD HIP PAIN LOW BACK PAIN [id number] 08/17/2015 11:11:00 08/17/2015 23:59:59 CLS Outpatient JANIYA CAMPOS [employer]HE SET UP PERSON [facility] RAD OSTEOPOROSIS [id number] 07/31/2015 09:44:00 07/31/2015 23:59:59 CLS Outpatient ALEKSANDER PRICE MD [facility] RAD PAIN IN RT SHOULDER, PAIN IN RT HIP [id number] 02/16/2015 12:07:00 02/16/2015 23:59:59 CLS Outpatient JANIYA CAMPOS [employer]HE SET UP PERSON [facility] RAD HIP PAIN [id number] 02/09/2015 13:06:00 02/09/2015 23:59:59 CLS Outpatient JANIYA CAMPOS [employer]HE SET UP PERSON [facility] RAD LBP,PAIN IN JOINT INVOLVING PELVIC REGION [id number] 11/30/2014 12:54:00 11/30/2014 23:59:59 CLS Outpatient JANIYA CAMPOS [employer]HE SET UP PERSON [facility] RAD CERVICAL PAIN, [id number] 11/26/2014 20:22:00 11/26/2014 21:00:00 DIS Emergency NOMAN PALMA MD [facility] ER PAIN NECK TO KNEES [id number] 09/08/2012 00:00:00 Document Registration [id number] 07/20/2012 09:08:00 Document Registration [id number] 07/03/2012 09:54:00 Document Registration [id number] 06/25/2012 09:35:00 Document Registration [id number] 07/10/2011 14:42:00 Document Registration [id number] 05/21/2011 09:48:00 Document Registration [id number] 05/14/2011 09:43:00 Document Registration [id number] 05/13/2011 09:18:00 Document Registration [id number] 04/01/2011 15:21:00 Document Registration [id number] 03/26/2011 15:12:00 Document Registration [id number] 01/08/2010 14:19:00 Document Registration
--- NOTE | 2018-11-27 11:10 | Diagnostic Imaging Report ---
Indication: Peripheral edema. Portable chest 1102 AM Heart size and pulmonary vascularity are normal. Lungs are clear. There are no effusions or pneumothoraces. Impression: Negative chest. Dictated by: Dictated on workstation # [id number]
[2018-11-27 11:15] LABS: BASOPHILS % (AUTO) 0 % (0-10); EOSINOPHILS % (AUTO) 0 % (0-10); HEMATOCRIT 40 % (40-54); HEMOGLOBIN 13.3 G/DL (13.3-17.7); LYMPHOCYTES # (AUTO) 2.2 X 10^3 (1.0-4.0); LYMPHOCYTES % (AUTO) 24 % (12-44); MEAN CORPUSCULAR HEMOGLOBIN 29 PG (25-34); MEAN CORPUSCULAR HGB CONC 33 G/DL (32-36); MEAN CORPUSCULAR VOLUME 88 FL (80-99); MEAN PLATELET VOLUME 9.6 FL (7.4-10.4); MONOCYTES # (AUTO) 0.5 X 10^3 (0.0-1.0); MONOCYTES % (AUTO) 6 % (0-12); NEUTROPHILS # (AUTO) 6.5 X 10^3 (1.8-7.8); NEUTROPHILS % (AUTO) 70 % (42-75); PLATELET COUNT 256 10^3/uL (130-400); RED CELL DISTRIBUTION WIDTH 15.3 % (10.0-14.5); WHITE BLOOD COUNT 9.3 10^3/uL (4.3-11.0)
[2018-11-27 11:29] LABS: PROTHROMBIN TIME PATIENT 13.4 SEC (12.2-14.7)
[2018-11-27 11:32] LABS: ALANINE AMINOTRANSFERASE 12 U/L (0-55); ALBUMIN 3.8 GM/DL (3.2-4.5); ALKALINE PHOSPHATASE 90 U/L (40-136); BILIRUBIN,TOTAL 0.3 MG/DL (0.1-1.0); BUN/CREATININE RATIO 5; CALCIUM 8.8 MG/DL (8.5-10.1); CARBON DIOXIDE 27 MMOL/L (21-32); CHLORIDE 100 MMOL/L (98-107); CREATININE SERUM 1.01 MG/DL (0.60-1.30); GFR ESTIMATED > 60; GLUCOSE 97 MG/DL (70-105); MAGNESIUM 2.3 MG/DL (1.8-2.4); POTASSIUM 3.4 MMOL/L (3.6-5.0); SODIUM 138 MMOL/L (135-145); TOTAL PROTEIN 6.7 GM/DL (6.4-8.2)
[2018-11-27 11:34] LABS: ERYTHROCYTE SEDIMENTATION RATE 17 MM/HR (0-30)
[2018-11-27 11:52] LABS: TSH (THYROID ANALYZER) 1.71 UIU/ML (0.35-4.94)
[2018-11-27 12:10] LABS: BILIRUBIN,URINE NEGATIVE (NEGATIVE); CLARITY,URINE CLEAR; COLOR,URINE YELLOW; GLUCOSE, URINE (UA) NEGATIVE (NEGATIVE); KETONES,URINE NEGATIVE (NEGATIVE); LEUKOCYTE ESTERASE ,URINE NEGATIVE (NEGATIVE); NITRITE,URINE NEGATIVE (NEGATIVE); PH,URINE 6 (5-9); PROTEIN,URINE NEGATIVE (NEGATIVE); UROBILINOGEN,URINE NORMAL (NORMAL)
[2018-11-27 12:16] LABS: BACTERIA,URINE NEGATIVE /HPF; SQUAMOUS EPITHELIAL CELL,UR RARE /HPF
[2018-11-27] MEDS ORDERED: KCL 10 MEQ TAB (MICRO K) PO ONE (13:00)
[2018-11-27] MEDS ORDERED: FUROSEMIDE 40 MG/4 ML INJ (LASIX) IVP ONE (13:00)
[2018-11-27] MEDS ORDERED: POTA-51 PO (13:06)
[2018-11-27] MEDS ORDERED: FURO-124 PO (13:06)
--- NOTE | 2018-11-27 13:06 | ED Lower Extremity ---
General Chief Complaint: Lower Extremity Stated Complaint: KNEE/FEET SWELLING Nursing Triage Note: PT PRESENTS TO ED WITH COMPLAINTS OF INCREASING GENERALIZED PAIN, LOWER EXTREMITY SWELLING. PT STATES HE HAS A I/D OF AN ABCESS N HIS R JAW/CHEEK ON 11/25/18 AND WAS PLACED ON OMNICEF. Nursing Sepsis Screen: No Definite Risk Source: patient History of Present Illness Date Seen by Provider: Nov 27, 2018 Time Seen by Provider: 10:44 Initial Comments PT ARRIVES VIA POV FROM HOME C/O BILATERAL LOWER LEG AND FEET SWELLING AND PAIN SINCE 11/25/18 NO CHEST PAIN NO SHORTNESS OF BREATH NO PALPITATIONS NO DIZZINESS NO SYNCOPE NO PROLONGED SITTING, ETC. NO NEW MEDICATIONS NO INJURY NO PARESTHESIAS OR MOTOR DEFICITS NO HISTORY OF SIMILAR PT HAS CHRONIC GENERALIZED PAIN AND TAKES HYDROCODONE 10 MG, OXYCONTIN, MELOXICAM AND XANAX DENIES ANY NEW MEDICATIONS STATES HE SAW DR. PRICE ON 11/25/18 AND HAD I&D OF ABSCESS TO RIGHT CHEEK DONE, AND SYMPTOMS BEGAN LATER THAT DAY. PCP: DR. PRICE Allergies and Home Medications Allergies Coded Allergies: No Known Drug Allergies (Unverified , 07/10/11) Home Medications Cephalexin 500 Mg Capsule, 500 MG PO TID Prescribed by: BRYNN BORREGO on 05/19/172121 Furosemide 40 Mg Tablet, 40 MG PO DAILY Prescribed by: TYRESE CANNON on 11/27/18 1306 Hydrocodone Bit/Acetaminophen 1 Each Tablet, 1 EACH PO Q6H PRN, (Reported) Hydrocodone Bit/Acetaminophen 1 Each Tablet, 1 EACH PO Q4-6HR PRN for PAIN Prescribed by: NOMAN PALMA on 11/26/142039 Potassium Chloride 20 Meq Tablet.er, 20 MEQ PO DAILY Prescribed by: TYRESE CANNON on 11/27/18 1306 Patient Home Medication List Home Medication List Reviewed: Yes Review of Systems Constitutional: no symptoms reported; No chills, No diaphoresis, No dizziness, No fever Respiratory: no symptoms reported; No dyspnea on exertion, No orthopnea, No short of breath Cardiovascular: No chest pain; edema; No palpitations, No syncope, No vascular heart diseas Gastrointestinal: no symptoms reported Genitourinary: no symptoms reported Musculoskeletal: see HPI, other (CHRONIC NECK AND BACK AND GENERALIZED PAIN ) Skin: see HPI Psychiatric/Neurological: No Symptoms Reported Past Ivnouzf-Cpumnv-Zwewhu Hx Patient Social History Alcohol Use: Denies Use Recreational Drug Use: No Smoking Status: Current Everyday Smoker Type Used: Cigarettes 2nd Hand Smoke Exposure: No Recent Foreign Travel: No Contact w/Someone Who Travel: No Recent Infectious Disease Expo: No Seasonal Allergies Seasonal Allergies: No Past Medical History Surgeries: Yes (C-SPINE SURGERY X 2; RIGHT HIP REPLACEMENT) Gallbladder, Joint Replacement, Orthopedic, Prostatectomy Respiratory: No Cardiac: Yes Hypertension Neurological: No Reproductive Disorders: No Genitourinary: Yes Prostate Problems Gastrointestinal: No Musculoskeletal: Yes (CHRONIC NECK AND BACK PAIN AND GENERALIZED PAIN; C-SPINE SURGERY X 2 ) Osteoporosis, Arthritis, Chronic Back Pain Endocrine: No HEENT: No Cancer: No Psychosocial: No Integumentary: No Blood Disorders: No Physical Exam Vital Signs Vital Signs - First Documented 11/27/18 10:46 Temp 98.1 Pulse 58 Resp 20 B/P (MAP) 121/81 (94) Pulse Ox 99 Capillary Refill : Less Than 3 Seconds Height, Weight, BMI Height: 5'5.00" Weight: 137lbs. oz. [id number]; 20.96 BMI Method:Stated General Appearance: WD/WN, no apparent distress HEENT: other (WOUND TO RIGHT CHEEK WITH DRESSING IN PLACE--DRESSING IS CLEAN/DRY/INTACT. WOUND IS HEALING--NO DRAINAGE OR SIGNIFICANT SURROUNDING ERYTHEMA) Cardiovascular: normal peripheral pulses, regular rate, rhythm, no murmur Respiratory: normal breath sounds, no respiratory distress, no accessory muscle use Gastrointestinal: normal bowel sounds, non tender, soft Hips: bilateral hip normal inspection Legs: bilateral leg other (RIGHT LOWER LEG AND ANKLE WITH 2+ EDEMA, LEFT LOWER LEG AND ANKLE WITH 1+ EDEMA. NO CALF TENDERNESS, NEGATIVE RENITA'S. NO CORDING. NO SKIN DISCOLORATION. MOTOR/SENSORY/VASCULAR INTACT. 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, no motor/sensory deficits, alert, normal mood/affect, oriented x 3 Skin: normal color, warm/dry Progress/Results/Core Measures Results/Orders Lab Results Laboratory Tests Test 11/27/18 11:09 11/27/18 12:05 Range/Units White Blood Count 9.3 4.3-11.0 10^3/uL Red Blood Count 4.53 4.35-5.85 10^6/uL Hemoglobin 13.3 13.3-17.7 G/DL Hematocrit 40 40-54 % Mean Corpuscular Volume 88 80-99 FL Mean Corpuscular Hemoglobin 29 25-34 PG Mean Corpuscular Hemoglobin Concent 33 32-36 G/DL Red Cell Distribution Width 15.3 H 10.0-14.5 % Platelet Count 256 130-400 10^3/uL Mean Platelet Volume 9.6 7.4-10.4 FL Neutrophils (%) (Auto) 70 42-75 % Lymphocytes (%) (Auto) 24 12-44 % Monocytes (%) (Auto) 6 0-12 % Eosinophils (%) (Auto) 0 0-10 % Basophils (%) (Auto) 0 0-10 % Neutrophils # (Auto) 6.5 1.8-7.8 X 10^3 Lymphocytes # (Auto) 2.2 1.0-4.0 X 10^3 Monocytes # (Auto) 0.5 0.0-1.0 X 10^3 Eosinophils # (Auto) 0.0 0.0-0.3 10^3/uL Basophils # (Auto) 0.0 0.0-0.1 10^3/uL Erythrocyte Sedimentation Rate 17 0-30 MM/HR Prothrombin Time 13.4 12.2-14.7 SEC INR Comment 1.0 0.8-1.4 Activated Partial Thromboplast Time 31 24-35 SEC Sodium Level 138 135-145 MMOL/L Potassium Level 3.4 L 3.6-5.0 MMOL/L Chloride Level 100 98-107 MMOL/L Carbon Dioxide Level 27 21-32 MMOL/L Anion Gap 11 5-14 MMOL/L Blood Urea Nitrogen 5 L 7-18 MG/DL Creatinine 1.01 0.60-1.30 MG/DL Estimat Glomerular Filtration Rate > 60 BUN/Creatinine Ratio 5 Glucose Level 97 70-105 MG/DL Calcium Level 8.8 8.5-10.1 MG/DL Corrected Calcium 9.0 8.5-10.1 MG/DL Magnesium Level 2.3 1.8-2.4 MG/DL Total Bilirubin 0.3 0.1-1.0 MG/DL Aspartate Amino Transf (AST/SGOT) 12 5-34 U/L Alanine Aminotransferase (ALT/SGPT) 12 0-55 U/L Alkaline Phosphatase 90 40-136 U/L B-Type Natriuretic Peptide 225.5 H <100.0 PG/ML Total Protein 6.7 6.4-8.2 GM/DL Albumin 3.8 3.2-4.5 GM/DL TSH [place] Testing 1.71 0.35-4.94 UIU/ML Urine Color YELLOW Urine Clarity CLEAR Urine pH 6 5-9 Urine Specific [place] 1.010 L 1.016-1.022 Urine Protein NEGATIVE NEGATIVE Urine Glucose (UA) NEGATIVE NEGATIVE Urine Ketones NEGATIVE NEGATIVE Urine Nitrite NEGATIVE NEGATIVE Urine Bilirubin NEGATIVE NEGATIVE Urine Urobilinogen NORMAL NORMAL MG/DL Urine Leukocyte Esterase NEGATIVE NEGATIVE Urine RBC (Auto) NEGATIVE NEGATIVE Urine RBC NONE /HPF Urine WBC NONE /HPF Urine Squamous Epithelial Cells RARE /HPF Urine Crystals NONE /LPF Urine Bacteria NEGATIVE /HPF Urine Casts NONE /LPF Urine Mucus NEGATIVE /LPF Urine Culture Indicated NO My Orders Orders - TYRESE CANNON DO Ed Iv/Invasive Line Start (11/27/18 10:52) Chest 1 View, Ap/Pa Only (11/27/18 10:52) BNP (11/27/18 10:52) Cbc With Automated Diff (11/27/18 10:52) Comprehensive Metabolic Panel (11/27/18 10:52) Magnesium (11/27/18 10:52) Protime With Inr (11/27/18 10:52) Partial Thromboplastin Time (11/27/18 10:52) Thyroid Analyzer (11/27/18 10:52) Ua Culture If Indicated (11/27/18 10:52) Erythrocyte Sedimentation Rate (11/27/18 10:52) Us Venous Lower Ext Peña (11/27/18 12:18) Furosemide Injection (Lasix Injection) (11/27/18 13:00) Potassium Chloride (Tablet) (Klor Con Ta (11/27/18 13:00) Vital Signs/I&O 11/27/18 11/27/18 10:46 13:30 Temp 98.1 Pulse 58 62 Resp 20 20 B/P (MAP) 121/81 (94) 126/74 (91) Pulse Ox 99 95 Blood Pressure Mean: 94 Progress Progress Note : Progress Note UNEVENTFUL ER STAY PT WANTS DRESSING CHANGED TO RIGHT CHEEK--DONE Diagnostic Imaging Comments BILATERAL LOWER EXTREMITY VENOUS DOPPLER--NORMAL. NO EVIDENCE OF THROMBUS--PER TECH REPORT AT 1300 AND LATER BY RADIOLOGIST REPORT Reviewed: Reviewed by Me Departure Impression Primary Impression: DEPENDENT LEG EDEMA Disposition: HOME, SELF-CARE Condition: Stable Departure-Patient Inst. Referrals: ALEKSANDER PRICE MD (PCP/Family) Primary Care Physician Patient Instructions: Dependent Edema (DC) Add. Discharge Instructions: ELEVATE LEGS MUCH POSSIBLE 2 GRAM SODIUM DIET FOLLOW UP WITH DR. PRICE ON FRIDAY SCHEDULED All discharge instructions reviewed with patient and/or family. Voiced unders tanding. Scripts Potassium Chloride (Potassium Chloride) 20 Meq Tablet.er 20 MEQ PO DAILY, #3 TAB Prov: KASSANDRA,TYRESE K DO 11/27/18 Furosemide (Lasix) 40 Mg Tablet 40 MG PO DAILY, #3 TAB Prov: KASSANDRA,TYRESE K DO 11/27/18 KASSANDRA,TYRESE K DO Nov 27, 2018 13:06
--- NOTE | 2018-11-27 13:09 | Diagnostic Imaging Report ---
PROCEDURE: US Venous Lower Ext Peña. TECHNIQUE: Multiple real-time grayscale images were obtained over the lower extremities in various projections, bilaterally. Additional duplex Doppler and color Doppler images were also obtained. INDICATION: Bilateral lower extremity swelling and pain. EXAMINATIONS: Both grayscale and color Doppler imaging of the deep veins of the lower extremities were performed with waveform analysis. FINDINGS: There is no intraluminal filling defect. Normal continuous flow is seen throughout the deep venous systems of both legs, and there is normal response to augmentation. The deep veins compress normally. IMPRESSION: No ultrasound evidence of deep venous thrombosis in either lower extremity. Dictated by: Dictated on workstation # [id number]
[2018-11-27 13:30] VITALS: BP 126/74
== END 2018-11-27 13:30 | disposition home or self-care (01) ==
LOC: EDUNIT# 10:18 → ER 10:20
DX: R60.0 Localized edema (principal); I10 Essential (primary) hypertension; M81.0 Age-related osteoporosis without current pathological fracture; F17.210 Nicotine dependence, cigarettes, uncomplicated; Z96.641 Presence of right artificial hip joint
CPT/HCPCS: 36415; 71045; 80053; 81000; 83735; 83880; 84443; 85025; 85610; 85652; 85730; 93970; 96374

== ENCOUNTER 2019-07-07 01:46 | Emergency (ER) | payer MEDICARE, MEDICAID ==
[~2019-07-07] VITALS: Ht 165.1 cm; Wt 58.0 kg
[~2019-07-07 01:46] MED LIST changes: +FURO-124 PO; +POTA-51 PO
[2019-07-07 02:09] LABS: BASOPHILS % (AUTO) 0 % (0-10); EOSINOPHILS % (AUTO) 1 % (0-10); HEMATOCRIT 43 % (40-54); HEMOGLOBIN 13.9 G/DL (13.3-17.7); LYMPHOCYTES # (AUTO) 2.5 X 10^3 (1.0-4.0); LYMPHOCYTES % (AUTO) 32 % (12-44); MEAN CORPUSCULAR HEMOGLOBIN 30 PG (25-34); MEAN CORPUSCULAR HGB CONC 33 G/DL (32-36); MEAN CORPUSCULAR VOLUME 90 FL (80-99); MEAN PLATELET VOLUME 9.3 FL (7.4-10.4); MONOCYTES # (AUTO) 0.5 X 10^3 (0.0-1.0); MONOCYTES % (AUTO) 7 % (0-12); NEUTROPHILS # (AUTO) 4.7 X 10^3 (1.8-7.8); NEUTROPHILS % (AUTO) 61 % (42-75); PLATELET COUNT 269 10^3/uL (130-400); RED CELL DISTRIBUTION WIDTH 16.4 % (10.0-14.5); WHITE BLOOD COUNT 7.7 10^3/uL (4.3-11.0)
--- NOTE | 2019-07-07 02:12 | ED Fall/Injury ---
General Chief Complaint: Trauma-Non Activation Stated Complaint: FALL Source: patient Exam Limitations: no limitations History of Present Illness Date Seen by Provider: Jul 07, 2019 Time Seen by Provider: 01:56 Initial Comments Here by EMS with report of fall at home. Apparently he was walking to the bathroom when he got dizzy and fell on his back and left side. Complains of mid back pain and left hip pain. States he hit his head and was knocked out although he is not sure how long. In other versions of the story, he states he slipped going to the bathroom and after he fell he was in pain and called out to his uncle who helped him. He takes a variety of medicine for her chronic pain. He has had 2 previous neck surgeries. Does have fibromyalgia and other disorders including the neck problem that prevent him from working so he is on disability. His uncle lives with him to help care for him. He took his normal dose of medicines at 7 PM tonight. Arrives via EMS with c-collar in place. No obvious injuries noted or reported by EMS. Occurred: just prior to arrival Severity: moderate Injuries/Pain Location: back, pelvis Context: lost balance, slipped Loss of Consciousness: brief (seconds) Modifying Factors: Worse With Movement; Improves With Rest Associated Symptoms (Fall): Abdominal Pain; No Chest Pain, No Confusion, No Headache, No Muscle Spasms, No Nausea/Vomiting, No Neck Pain, No Shortness of Air; Trouble Walking Allergies and Home Medications Allergies Coded Allergies: No Known Drug Allergies (Unverified , 07/10/11) Home Medications Hydrocodone Bit/Acetaminophen 1 Each Tablet, 1 EACH PO Q6H PRN, (Reported) Patient Home Medication List Home Medication List Reviewed: Yes Review of Systems Review of Systems Constitutional: see HPI; No chills, No fever Eyes: No Symptoms Reported Ears, Nose, Mouth, Throat: no symptoms reported Respiratory: no symptoms reported Cardiovascular: no symptoms reported Gastrointestinal: see HPI, abdominal pain; No nausea, No vomiting Genitourinary: no symptoms reported Musculoskeletal: back pain, joint pain, muscle pain; No neck pain Skin: no symptoms reported Psychiatric/Neurological: Denies Headache, Denies Weakness All Other Systems Reviewed Negative Unless Noted: Yes Past Huzykhp-Aildbi-Prjoxb Hx Past Med/Social Hx: Reviewed Nursing Past Med/Soc Hx Patient Social History Alcohol Use: Denies Use Recreational Drug Use: No Type Used: Cigarettes 2nd Hand Smoke Exposure: No Recent Foreign Travel: No Contact w/Someone Who Travel: No Recent Hopitalizations: Yes Physical Abuse: No Sexual Abuse: No Mistreated: No Fear: No Seasonal Allergies Seasonal Allergies: No Past Medical History Surgeries: Yes (C-SPINE SURGERY X 2; RIGHT HIP REPLACEMENT) Gallbladder, Joint Replacement, Orthopedic, Prostatectomy Respiratory: No Cardiac: Yes Hypertension Neurological: No Reproductive Disorders: No Genitourinary: Yes Prostate Problems Gastrointestinal: No Musculoskeletal: Yes (CHRONIC NECK AND BACK PAIN AND GENERALIZED PAIN; C-SPINE SURGERY X 2 ) Osteoporosis, Arthritis, Chronic Back Pain Endocrine: No HEENT: No Cancer: No Psychosocial: No Integumentary: No Blood Disorders: No Family Medical History Reviewed Nursing Family Hx Physical Exam Vital Signs Vital Signs - First Documented Capillary Refill : Height, Weight, BMI Height: 5'5.00" Weight: 137lbs. oz. 62.775587pk; 20.96 BMI Method:Stated General Appearance: WD/WN, no apparent distress HEENT: PERRL/EOMI, pharynx normal Neck: other (in c-collar) Cardiovascular: regular rate, rhythm, no murmur Respiratory: lungs clear, normal breath sounds Gastrointestinal: soft; No guarding, No rebound; tenderness (epigastric mild) Back: vertebral tenderness (mid back at the thoracic lumbar junction) Extremities: non-tender, normal inspection Neurologic/Psychiatric: alert, oriented x 3 Skin: normal color, warm/dry [place] Coma Score Best Eye Response: (4) Open Spontaneously Best Verbal Response: (5) Oriented Best Motor Response: (6) Obeys Commands Progress/Results/Core Measures Results/Orders Lab Results Laboratory Tests Test 07/07/19 01:53 Range/Units White Blood Count 7.7 4.3-11.0 10^3/uL Red Blood Count 4.70 4.35-5.85 10^6/uL Hemoglobin 13.9 13.3-17.7 G/DL Hematocrit 43 40-54 % Mean Corpuscular Volume 90 80-99 FL Mean Corpuscular Hemoglobin 30 25-34 PG Mean Corpuscular Hemoglobin Concent 33 32-36 G/DL Red Cell Distribution Width 16.4 H 10.0-14.5 % Platelet Count 269 130-400 10^3/uL Mean Platelet Volume 9.3 7.4-10.4 FL Neutrophils (%) (Auto) 61 42-75 % Lymphocytes (%) (Auto) 32 12-44 % Monocytes (%) (Auto) 7 0-12 % Eosinophils (%) (Auto) 1 0-10 % Basophils (%) (Auto) 0 0-10 % Neutrophils # (Auto) 4.7 1.8-7.8 X 10^3 Lymphocytes # (Auto) 2.5 1.0-4.0 X 10^3 Monocytes # (Auto) 0.5 0.0-1.0 X 10^3 Eosinophils # (Auto) 0.0 0.0-0.3 10^3/uL Basophils # (Auto) 0.0 0.0-0.1 10^3/uL Sodium Level 139 135-145 MMOL/L Potassium Level 4.0 3.6-5.0 MMOL/L Chloride Level 105 98-107 MMOL/L Carbon Dioxide Level 22 21-32 MMOL/L Anion Gap 12 5-14 MMOL/L Blood Urea Nitrogen 10 7-18 MG/DL Creatinine 0.85 0.60-1.30 MG/DL Estimat Glomerular Filtration Rate > 60 BUN/Creatinine Ratio 12 Glucose Level 93 70-105 MG/DL Calcium Level 8.7 8.5-10.1 MG/DL Corrected Calcium 9.0 8.5-10.1 MG/DL Total Bilirubin 0.2 0.1-1.0 MG/DL Aspartate Amino Transf (AST/SGOT) 15 5-34 U/L Alanine Aminotransferase (ALT/SGPT) 11 0-55 U/L Alkaline Phosphatase 82 40-136 U/L C-Reactive Protein High Sensitivity 0.52 H 0.00-0.50 MG/DL Total Protein 6.4 6.4-8.2 GM/DL Albumin 3.6 3.2-4.5 GM/DL Lipase 68 8-78 U/L My Orders Orders - AVE BECKMAN MD Pelvis With Left Hip 2-3 Views (07/07/19 01:59) Ct Head/Cervical Spine Wo (07/07/19 01:59) Ct Thoracic/Lumbar Spine Wo (07/07/19 01:59) Cbc With Automated Diff (07/07/19 01:59) Comprehensive Metabolic Panel (07/07/19 01:59) Hs C Reactive Protein (07/07/19 01:59) Lipase (07/07/19 01:59) Ed Iv/Invasive Line Start (07/07/19 02:17) Hydrocodone/Apap 10/325 Tablet (Lortab 1 (07/07/19 02:55) Vital Signs/I&O 07/07/19 07/07/19 01:47 01:47 Temp 36.8 36.8 Pulse 66 66 Resp 18 18 B/P (MAP) 146/91 (109) 146/91 (109) Pulse Ox 99 99 O2 Delivery Room Air Room Air Progress Progress Note : Progress Note Seen and evaluated. CT head and C-spine ordered. CT thoracic or lumbar spine ordered. Pelvis and left hip x-ray ordered. Monitor patient. Hydrocodone 10/325 one tab by mouth ordered. C-collar off it 0254. 0352: CT is complete and results noted. No acute fractures or findings. Patient is feeling a little better. Discharged home with return precautions. Patient verbalize understanding instructions and agreement with plan. Diagnostic Imaging Diagonstic Imaging: Xray Plain Films/CT/US/NM/MRI: pelvis, hip Comments No acute fracture Diagonstic Imaging: CT Plain Films/CT/US/NM/MRI: c-spine, head Comments No hemorrhage or skull fracture noted. No evidence of cervical fracture. Reviewed: Reviewed [place] Study, Reviewed by Me Diagonstic Imaging: CT Plain Films/CT/US/NM/MRI: other (thoracolumbar spine) Comments No thoracic fracture. No evidence of acute fracture of the lumbar spine. Reviewed: Reviewed by Me Departure Impression Primary Impression: Minor head injury Qualified Codes: S09.90XA - Unspecified injury of head, initial encounter Additional Impression: Acute exacerbation of chronic low back pain Disposition: 01 HOME, SELF-CARE Condition: Stable Departure-Patient Inst. Decision time for Depature: 03:33 Referrals: ALEKSANDER PRICE MD (PCP/Family) Primary Care Physician Patient Instructions: Low Back Pain (DC), Minor Head Injury (DC) Add. Discharge Instructions: All discharge instructions reviewed with patient and/or family. Voiced understanding. Continue home medications as previously prescribed. You may use your prescribed breakthrough pain medicine for worsening pain. Follow-up with your DrBoston in one to 2 days for recheck. Return for worse pain, weakness, fever, vomiting, vision or balance problems or other concerns as needed. Copy Copies To 1: ALEKSANDER PRICE MD, TIMOTHY D MD Jul 07, 2019 02:12
[2019-07-07] MEDS ORDERED: OXYC20TA54 (02:23)
[2019-07-07] MEDS ORDERED: ALPR1TAB7 (02:23)
[2019-07-07] MEDS ORDERED: CELE-63 (02:23)
[2019-07-07] MEDS ORDERED: GABA-486 (02:23)
[2019-07-07] MEDS ORDERED: MELO15TA39 (02:23)
[2019-07-07] MEDS ORDERED: METO-333 (02:23)
[2019-07-07] MEDS ORDERED: CYCL10TA9 (02:23)
[2019-07-07 02:24] LABS: ALANINE AMINOTRANSFERASE 11 U/L (0-55); ALBUMIN 3.6 GM/DL (3.2-4.5); ALKALINE PHOSPHATASE 82 U/L (40-136); BILIRUBIN,TOTAL 0.2 MG/DL (0.1-1.0); BUN/CREATININE RATIO 12; CALCIUM 8.7 MG/DL (8.5-10.1); CARBON DIOXIDE 22 MMOL/L (21-32); CHLORIDE 105 MMOL/L (98-107); CREATININE SERUM 0.85 MG/DL (0.60-1.30); GFR ESTIMATED > 60; GLUCOSE 93 MG/DL (70-105); LIPASE 68 U/L (8-78); SODIUM 139 MMOL/L (135-145); TOTAL PROTEIN 6.4 GM/DL (6.4-8.2)
[2019-07-07] MEDS ORDERED: HYDROcodone/APAP 10 MG/325 MG (LORTAB) TAB PO STA (02:55)
[2019-07-07 04:07] VITALS: BP 119/66
--- NOTE | 2019-07-07 06:17 | Diagnostic Imaging Report ---
PROCEDURE: CT head and CT cervical spine without contrast. TECHNIQUE: Multiple contiguous axial images were obtained through the brain and cervical spine without the use of intravenous contrast. Sagittal and coronal reformations through the cervical spine were then performed. Auto Exposure Controls were utilized during the CT exam to meet ALARA standards for radiation dose reduction. INDICATION: Fall. Back pain. FINDINGS: CT HEAD: There is moderate motion artifact. No intracranial hemorrhage is demonstrated. Ventricles and cortical gyral pattern are normal. Basal cisterns are clear. No extra-axial fluid collection. No mass effect. Mastoid air cells and paranasal sinuses are clear. CT cervical spine: Sagittal and coronal images show fusion C3-C6. Alignment is good. Fusion does appear solid. Hardware appears intact. Facets show good alignment. There is mild spinal stenosis C3 through C5. The odontoid is intact. Advanced degenerative changes noted along the atlantoaxial joint. IMPRESSION: 1. Cervical fusion with advanced degenerative changes. No acute abnormalities demonstrated. 2. CT head with no acute abnormality. These findings are concordant with the preliminary report. Dictated by: Dictated on workstation # [id number]
--- NOTE | 2019-07-07 06:34 | Diagnostic Imaging Report ---
INDICATION: Fall. AP pelvis and left hip. 3 views. SI joints are symmetrical. Pubic symphysis in good alignment. There is considerable sclerosis along the SI joints and pubic symphysis. The left hip shows advanced arthritic disease with loss of joint space. Hypertrophic changes and sclerosis present. There are moderate osteophytes along the base of the femoral head. Total arthroplasty right hip appears in good alignment. IMPRESSION: 1. Advanced arthritic disease left hip without acute fracture. 2. Dense sclerotic changes SI joints and pubic symphysis. These findings are consistent with ankylosing spondylitis. Dictated by: Dictated on workstation # [id number]
--- NOTE | 2019-07-07 06:54 | Diagnostic Imaging Report ---
PROCEDURE: CT thoracic and lumbar spine without contrast. TECHNIQUE: Multiple contiguous axial images were obtained through the thoracic and lumbar spine without the use of intravenous contrast. Sagittal and coronal reformations were then performed. INDICATION: Fall. Back pain. FINDINGS: Sagittal reformatted images show good alignment of the thoracic and lumbar spine. Moderate degenerative changes with narrowing of disc spaces and hypertrophic endplate changes are noted throughout the mid and lower thoracic region as well as the lower lumbosacral spine. No compression fractures. Facets show good alignment without pars defect. Moderate degenerative facet disease noted in the lower lumbosacral spine. There is calcification of the anterior longitudinal ligament throughout the lumbar region. No fractures are demonstrated. No paraspinal masses. IMPRESSION: Moderate degenerative changes noted throughout the thoracic and lumbosacral spine. No acute abnormalities. These findings are concordant with the preliminary report. Dictated by: Dictated on workstation # [id number]
== END 2019-07-07 04:07 | disposition home or self-care (01) ==
LOC: EDUNIT# 01:46 → ER 01:47
DX: S09.90XA Unspecified injury of head, initial encounter (principal); M54.5 Low back pain; I10 Essential (primary) hypertension; M81.0 Age-related osteoporosis without current pathological fracture; R40.2142 Coma scale, eyes open, spontaneous, at arrival to emergency department; R40.2252 Coma scale, best verbal response, oriented, at arrival to emergency department; R40.2362 Coma scale, best motor response, obeys commands, at arrival to emergency department; W01.198A Fall on same level from slipping, tripping and stumbling with subsequent striking against other object, initial encounter
CPT/HCPCS: 36415; 70450; 72125; 72128; 72131; 80053; 83690; 85025; 86141

== ENCOUNTER → 2020-03-23 | Outpatient (CLI) | payer MEDICARE, MEDICAID ==
[~2020-03-23] MED LIST changes: +ALPR1TAB7; +CELE-63; +CYCL10TA9; +GABA-486; +MELO15TA39; +METO-333; +OXYC20TA54
--- NOTE | 2020-03-23 10:57 | Diagnostic Imaging Report ---
Pelvis and bilateral hips at 10:28. Indication: Fell, left hip pain Single AP view of the pelvis and AP and lateral views of both hip joints were obtained. There is no fracture, dislocation or acute bony abnormality evident. As noted on the prior exam of 07/07/2019 there is a total hip prosthesis in place on the right. The prosthetic components appear to be in good position. There is at least moderate degenerative disease of the left hip joint. There is also sclerosis of the pubic symphysis. Moderate degenerative changes involving the sacroiliac joints are also seen. The degenerative changes involving the lower lumbar spine seen on the prior CT thoracic/lumbar spine exam of 07/07/2019 are again evident and do not appear to progress. Surgical clips are again seen overlying the left pelvis. IMPRESSION: 1. There is no evidence for an acute bony abnormality. 2. If clinical concern regarding an occult fracture persists and further imaging is desired, then either CT or preferably MRI would be recommended for further evaluation. Dictated by: Dictated on workstation # [id number]
== END ==
LOC: RAD 10:10
DX: M25.552 Pain in left hip (principal)
CPT/HCPCS: 73523

== ENCOUNTER → 2020-05-09 | Outpatient (CLI) | payer MEDICAID, MEDICARE ==
--- NOTE | 2020-05-09 09:38 | Diagnostic Imaging Report ---
INDICATION: Postmenopausal COMPARISON: 08/13/2015 FINDINGS: The bone mineral density of the spine and the left hip was measured. The plain film exam of 03/23/2020 did note a total hip prosthesis in place on the right. The total T score for the spine is -0.4. On the prior exam the T score is -1.2. The total T score for the left hip is -2.0 and for the right hip, this is unchanged when compared to the prior exam. The T score for the left femoral neck is -1.7 as opposed to -2.1 on the prior study. However, it should be noted that the T score for wedge triangle is -2.7 as opposed to -2.9 on the prior exam. The trochanteric region of the left femur T score is -2.9. On the prior exam the T score is -2.6. The T-scores for wedge triangle and the trochanteric region do indicate osteoporosis. AP Spine L1-L4: [BMD (g/cm2): 1.192] [T-Score: -0.4] [Z-Score: 0.6] [BMD Previous: 1.094] [BMD % Change: 9.0] LT Hip Neck: [BMD (g/cm2): 0.852] [T-Score: -1.7] [Z-Score: -0.3] LT Hip Total: [BMD (g/cm2):0.819] [T-Score:-2.0] [Z-Score: -1.1] [BMD Previous: 0.819] [BMD % Change: 0.0] RT Hip Neck: [BMD (g/cm2):NA] [T-Score:NA] [Z-Score:NA] RT Hip Total: [BMD (g/cm2):NA] [T-score:NA] [Z-Score:NA] [BMD Previous:NA] [BMD % Change:NA] *Indicates significant change from prior examination based on 95% confidence level. World Health Organization criteria for BMD interpretation classify patients as Normal (T-score at or above -1.0), Osteopenic (T-score between -1.0 and -2.5) or Osteoporotic (T-score at or below -2.5). LIMITATIONS AND MODIFICATION: None. FRACTURE RISK (FRAX SCORE): The ten year probability of (%): Major Osteoporotic Fracture: [9.7] Hip Fracture: [2.2] IMPRESSION: 1. The appearance of the bone scan has improved as the T score for the spine and for the left femoral neck has increased. The T score for the spine is within normal limits while the T score for the left femoral neck remains within the range of osteopenia. 2. While the total T score for the left hip continues to fall within the range of osteopenia the T-scores for wedge triangle in the intertrochanteric region do indicate osteoporosis. 3. See below National Osteoporosis Foundation guidelines on when to potentially initiate pharmacologic therapy. Based on the National Osteoporosis Foundation Guidelines, pharmacologic treatment should be initiated in any of the following, unless clinical conditions suggest otherwise: * Any patient with prior fragility fracture of the hip or vertebrae. A spine fracture indicates 5X risk for subsequent spine fracture and 2X risk for subsequent hip fracture. * Osteoporosis (T-score <-2.5). * Postmenopausal women and men age 50 and older with low bone mass/osteopenia (T-score between -1.0 and -2.5) by DXA and 10-year major osteoporotic fracture greater than 20% or a 10-year probability of hip fracture greater than 3%. These fracture risks are supplied above in the FRAX score, if applicable. * Clinician judgement and/or patient preferences may indicate treatment for people with 10-year fracture probabilities above or below these levels. Dictated by: Dictated on workstation # [id number]
--- NOTE | 2020-05-09 09:40 | Diagnostic Imaging Report ---
Cervical spine at 9:01. Indication: Neck pain The previous CT cervical spine exam of 07/07/2019 noted postsurgical changes consistent with an anterior fusion of C3-C4 and C5. On this exam the orthopedic hardware seems stable in position when compared to the prior study. As noted on the prior exam there is sclerosis of the dens with a thin linear lucency extending through the ventral aspect of the base of the dens. This is most likely a sequela of prior trauma. There is no fracture or acute bony abnormality appreciated. There is no sign of retropharyngeal edema. The lung apices are clear. Impression: 1. There is evidence of prior trauma to the dens but there is no sign of an acute bony abnormality. 2. The anterior fusion of C3-C4 and C5 seen previously appears stable. 3. If clinical concern regarding an underlying abnormality persists and further imaging is desired, then MRI would be recommended. Dictated by: Dictated on workstation # [id number]
== END ==
LOC: RAD 08:30
DX: M81.0 Age-related osteoporosis without current pathological fracture (principal)
CPT/HCPCS: 72040; 77080

== ENCOUNTER 2021-07-27 13:37 | Emergency (ER) | payer MEDICARE ==
[~2021-07-27] VITALS: Ht 160 cm; Wt 60.0 kg
[~2021-07-27 13:37] MED LIST changes: +CYCL10TA25; -CYCL10TA9
[2021-07-27 13:42] VITALS: BP 169/90
--- NOTE | 2021-07-27 13:51 | ED GI ---
General Chief Complaint: Abdominal/GI Problems Stated Complaint: VOMITING / DIARRHEA / HALLUCINATION Source of Information: Patient Exam Limitations: No Limitations History of Present Illness Date Seen by Provider: Jul 27, 2021 Time Seen by Provider: 13:49 Initial Comments To ER by private vehicle with reports of vomiting diarrhea insomnia and hallucinations that have been ongoing for about 3 weeks since his new physician stopped his temazepam 3 weeks ago. Denies any abdominal pain fevers or chills. States that he was formerly on temazepam 30 mg at bedtime, hydrocodone 10 mg tablets and Xanax. He was formerly seeing Dr. Mcgill but switched to Dr. Ghosh and upon doing so was taken off of 1 his 2 benzodiazepines. He states that his hallucinations are auditory and they are "a man with a weed eater". Timing/Duration: Constant Severity/Quality: Cramping Radiation: No Radiation Activities at Onset: None Associated Symptoms: Denies Symptoms Allergies and Home Medications Allergies Coded Allergies: No Known Drug Allergies (Unverified , 07/10/11) Patient Home Medication List Home Medication List Reviewed: Yes Alprazolam (Alprazolam) 1 Mg Tablet, (Reported) Entered as Reported by: MARLENA GARRETT on 07/07/19222 Celecoxib (Celecoxib) 200 Mg Capsule, (Reported) Entered as Reported by: MARLENA GARRETT on 07/07/19222 Cyclobenzaprine HCl (Cyclobenzaprine HCl) 10 Mg Tablet, (Reported) Entered as Reported by: MARLENA GARRETT on 07/07/19222 Gabapentin (Gabapentin) 100 Mg Capsule, (Reported) Entered as Reported by: MARLENA GARRETT on 07/07/19222 Hydrocodone Bit/Acetaminophen (Hydrocodon-Acetaminophn 10-325) 1 Each Tablet, 1 EACH PO Q6H PRN, (Reported) Entered as Reported by: CHAO CABA on 07/10/11 1449 Meloxicam (Meloxicam) 15 Mg Tablet, (Reported) Entered as Reported by: MARLENA GARRETT on 07/07/19222 Metoprolol Tartrate (Metoprolol Tartrate) 25 Mg Tablet, (Reported) Entered as Reported by: MARLENA GARRETT on 07/07/19222 Oxycodone HCl (Oxycontin) 20 Mg Tab.er.12h, (Reported) Entered as Reported by: MARLENA GARRETT on 07/07/19 0223 Temazepam (Temazepam) 30 Mg Capsule, 30 MG PO HS Prescribed by: BRYNN BORREGO on 07/27/21 4270 Review of Systems Review of Systems Constitutional: see HPI EENTM: No Symptoms Reported Respiratory: No Symptoms Reported Cardiovascular: No Symptoms Reported Gastrointestinal: See HPI, Diarrhea, Nausea Genitourinary: No Symptoms Reported Musculoskeletal: no symptoms reported Skin: no symptoms reported Psychiatric/Neurological: No Symptoms Reported Endocrine: No Symptoms Reported Hematologic/Lymphatic: No Symptoms Reported Past Accuuqh-Jnilik-Kqzgat Hx Seasonal Allergies Seasonal Allergies: No Past Medical History Surgeries: Yes (C-SPINE SURGERY X 2; RIGHT HIP REPLACEMENT) Gallbladder, Joint Replacement, Orthopedic, Prostatectomy Respiratory: No Cardiac: Yes Hypertension Neurological: No Reproductive Disorders: No Genitourinary: Yes Prostate Problems Gastrointestinal: No Musculoskeletal: Yes (CHRONIC NECK AND BACK PAIN AND GENERALIZED PAIN; C-SPINE SURGERY X 2 ) Osteoporosis, Arthritis, Chronic Back Pain Endocrine: No HEENT: No Cancer: No Psychosocial: No Integumentary: No Blood Disorders: No Physical Exam Vital Signs Vital Signs - First Documented 07/27/21 13:42 Temp 36.6 Pulse 55 Resp 18 B/P (MAP) 169/90 (116) Pulse Ox 97 Capillary Refill : Height/Weight/BMI Height: 5'5.00" Weight: 137lbs. oz. [id number]; 21.00 BMI Method:Stated General Appearance: WD/WN, no apparent distress HEENT: PERRL/EOMI, normal ENT inspection Neck: non-tender, full range of motion Respiratory: no respiratory distress, no accessory muscle use Gastrointestinal: normal bowel sounds, non tender, soft Extremities: normal range of motion, non-tender Neurologic/Psychiatric: alert, normal mood/affect, oriented x 3, other (He is alert and oriented with no apparent hallucinations here. Conversation is appropriate.) Skin: normal color, warm/dry Progress/Results/Core Measures Results/Orders Lab Results Laboratory Tests Test 07/27/21 13:48 07/27/21 14:30 Range/Units White Blood Count 13.1 H 4.3-11.0 10^3/uL Red Blood Count 5.70 H 4.30-5.52 10^6/uL Hemoglobin 17.0 13.3-17.7 g/dL Hematocrit 49 40-54 % Mean Corpuscular Volume 87 80-99 fL Mean Corpuscular Hemoglobin 30 25-34 pg Mean Corpuscular Hemoglobin Concent 34 32-36 g/dL Red Cell Distribution Width 14.6 H 10.0-14.5 % Platelet Count 329 130-400 10^3/uL Mean Platelet Volume 10.0 9.0-12.2 fL Immature Granulocyte % (Auto) 1 % Neutrophils (%) (Auto) 65 42-75 % Lymphocytes (%) (Auto) 26 12-44 % Monocytes (%) (Auto) 7 0-12 % Eosinophils (%) (Auto) 0 0-10 % Basophils (%) (Auto) 0 0-10 % Neutrophils # (Auto) 8.5 H 1.8-7.8 10^3/uL Lymphocytes # (Auto) 3.5 1.0-4.0 10^3/uL Monocytes # (Auto) 1.0 0.0-1.0 10^3/uL Eosinophils # (Auto) 0.0 0.0-0.3 10^3/uL Basophils # (Auto) 0.0 0.0-0.1 10^3/uL Immature Granulocyte # (Auto) 0.1 0.0-0.1 10^3/uL Sodium Level 126 L 135-145 MMOL/L Potassium Level 3.6 3.6-5.0 MMOL/L Chloride Level 91 L 98-107 MMOL/L Carbon Dioxide Level 22 21-32 MMOL/L Anion Gap 13 5-14 MMOL/L Blood Urea Nitrogen 8 7-18 MG/DL Creatinine 0.95 0.60-1.30 MG/DL Estimat Glomerular Filtration Rate 92 BUN/Creatinine Ratio 8 Glucose Level 97 70-105 MG/DL Calcium Level 10.1 8.5-10.1 MG/DL Corrected Calcium 8.5-10.1 MG/DL Total Bilirubin 1.3 H 0.1-1.0 MG/DL Aspartate Amino Transf (AST/SGOT) 18 5-34 U/L Alanine Aminotransferase (ALT/SGPT) 29 0-55 U/L Alkaline Phosphatase 78 40-136 U/L Total Protein 8.3 H 6.4-8.2 GM/DL Albumin 4.8 H 3.2-4.5 GM/DL Serum Alcohol < 10 <10 MG/DL Urine Color YELLOW Urine Clarity CLEAR Urine pH 6.0 5-9 Urine Specific [place] 1.020 1.016-1.022 Urine Protein NEGATIVE NEGATIVE Urine Glucose (UA) NEGATIVE NEGATIVE Urine Ketones NEGATIVE NEGATIVE Urine Nitrite NEGATIVE NEGATIVE Urine Bilirubin NEGATIVE NEGATIVE Urine Urobilinogen 1.0 < = 1.0 MG/DL Urine Leukocyte Esterase NEGATIVE NEGATIVE Urine RBC (Auto) NEGATIVE NEGATIVE Urine RBC RARE /HPF Urine WBC 2-5 /HPF Urine Crystals NONE /LPF Urine Bacteria FEW H /HPF Urine Casts NONE /LPF Urine Mucus SMALL H /LPF Urine Culture Indicated NO My Orders Orders - BRYNN BORREGO TOXICOLOGY SUPERVISOR Cbc With Automated Diff (07/27/21 13:52) Comprehensive Metabolic Panel (07/27/21 13:52) Ua Culture If Indicated (07/27/21 13:52) Ed Iv/Invasive Line Start (07/27/21 13:52) Alcohol (07/27/21 13:52) Lactated Ringers (Lr 1000 Ml Iv Solution (07/27/21 14:00) Ondansetron Injection (Zofran Injectio (07/27/21 14:00) Medications Given in ED Current Medications Medications Dose Ordered Sig/Kenneth Route Start Time Stop Time Status Last Admin Dose Admin Ondansetron HCl 8 mg ONCE ONCE IVP 07/27/21 14:00 07/27/21 14:01 DC 07/27/21 14:04 8 MG Vital Signs/I&O 07/27/21 13:42 Temp 36.6 Pulse 55 Resp 18 B/P (MAP) 169/90 (116) Pulse Ox 97 Departure Communication (Admissions) 1400-States that he would rather discontinue the Xanax and continue the temazepam at bedtime. K tracks shows that he was formerly taking Xtampza ER 36 mg twice a day, Xanax 1 mg 3 times daily, hydrocodone 10/325 every 3 hours (quantity of 240 for a 30-day supply). He is to have ran out of his temazepam on 07/02/2021. On that date his Xtampza ER dosage was reduced from 36 mg to 9 mg. His hydrocodone 10/325 was reduced on the same date to 1 tablet every 6 hours. I suspect that his symptoms are mostly related to opiate withdrawal given the nausea vomiting and diarrhea and significant reduction in opiate dosages. Impression Primary Impression: Benzodiazepine withdrawal Additional Impression: Opioid withdrawal Disposition: 01 HOME, SELF-CARE Condition: Stable Departure-Patient Inst. Decision time for Depature: 14:00 Referrals: MATIAS GHOSH DO (PCP/Family) Primary Care Physician Patient Instructions: Drug Withdrawal ED Add. Discharge Instructions: 1. Your symptoms are related to the reduction in pain medication dosage as well as the medicine to help you relax. This is unfortunately a necessary reduction because the dose that you were on (temazepam+Xanax+Xtampza ER+hydrocodone) carries a high risk of overdose. You can use the temazepam at home at night but you should not take the Xanax. Since you are more interested in taking the temazepam than the Xanax then you can call your primary care provider on Friday to see if she would discontinue the Xanax and replace it with the temazepam.Aracelis written you for 3 days worth of temazepam. no additional controlled substances can be written from the ER. All discharge instructions reviewed with patient and/or family. Voiced understanding. Scripts Temazepam (Temazepam) 30 Mg Capsule 30 MG PO HS, #3 CAP Prov: BRYNN BORREGO APRN 07/27/21 Copy Copies To 1: MATIAS GHOSH PETER J APRN Jul 27, 2021 13:51
[2021-07-27 13:57] LABS: BASOPHILS % (AUTO) 0 % (0-10); EOSINOPHILS % (AUTO) 0 % (0-10); HEMATOCRIT 49 % (40-54); LYMPHOCYTES # (AUTO) 3.5 10^3/uL (1.0-4.0); LYMPHOCYTES % (AUTO) 26 % (12-44); MEAN CORPUSCULAR HEMOGLOBIN 30 pg (25-34); MEAN CORPUSCULAR HGB CONC 34 g/dL (32-36); MEAN CORPUSCULAR VOLUME 87 fL (80-99); MONOCYTES % (AUTO) 7 % (0-12); NEUTROPHILS # (AUTO) 8.5 10^3/uL (1.8-7.8); NEUTROPHILS % (AUTO) 65 % (42-75); PLATELET COUNT 329 10^3/uL (130-400); WHITE BLOOD COUNT 13.1 10^3/uL (4.3-11.0)
[2021-07-27] MEDS ORDERED: ONDANSETRON 4 MG/2 ML (SDV) Z0FRAN IVP ONE (14:00)
[2021-07-27] MEDS ORDERED: LACTATED RINGERS 1,000 ML IV SCH (14:00)
[2021-07-27 14:06] LABS: ALBUMIN 4.8 GM/DL (3.2-4.5); CHLORIDE 91 MMOL/L (98-107); POTASSIUM 3.6 MMOL/L (3.6-5.0); SODIUM 126 MMOL/L (135-145)
[2021-07-27 14:08] LABS: CALCIUM 10.1 MG/DL (8.5-10.1)
[2021-07-27 14:09] LABS: GLUCOSE 97 MG/DL (70-105); TOTAL PROTEIN 8.3 GM/DL (6.4-8.2)
[2021-07-27 14:10] LABS: CARBON DIOXIDE 22 MMOL/L (21-32)
[2021-07-27 14:11] LABS: BILIRUBIN,TOTAL 1.3 MG/DL (0.1-1.0)
[2021-07-27 14:12] LABS: ALKALINE PHOSPHATASE 78 U/L (40-136)
[2021-07-27 14:13] LABS: CREATININE SERUM 0.95 MG/DL (0.60-1.30); GFR ESTIMATED 92
[2021-07-27 14:14] LABS: BUN/CREATININE RATIO 8
[2021-07-27 14:15] LABS: ALANINE AMINOTRANSFERASE 29 U/L (0-55)
[2021-07-27 14:35] LABS: BILIRUBIN,URINE NEGATIVE (NEGATIVE); CLARITY,URINE CLEAR; COLOR,URINE YELLOW; GLUCOSE, URINE (UA) NEGATIVE (NEGATIVE); KETONES,URINE NEGATIVE (NEGATIVE); LEUKOCYTE ESTERASE ,URINE NEGATIVE (NEGATIVE); NITRITE,URINE NEGATIVE (NEGATIVE); PROTEIN,URINE NEGATIVE (NEGATIVE)
[2021-07-27 14:44] LABS: BACTERIA,URINE FEW /HPF; RBC,URINE RARE /HPF
[2021-07-27] MEDS ORDERED: TEMA30CA PO (14:49)
== END 2021-07-27 15:15 | disposition home or self-care (01) ==
LOC: EDUNIT# 13:37 → ER 13:39
DX: F13.239 Sedative, hypnotic or anxiolytic dependence with withdrawal, unspecified (principal); F11.23 Opioid dependence with withdrawal
CPT/HCPCS: 80053; 81000; 85025; 99284; G0480; 36415; 80320

== ENCOUNTER 2022-04-03 05:40 | Outpatient (CLI) | payer MEDICARE, MEDICAID ==
[~2022-04-03] VITALS: Ht 165 cm; Wt 61.2 kg
[~2022-04-03 05:40] MED LIST changes: +TEMA30CA PO
[2022-04-03] MEDS ORDERED: PRAM0.257 PO (10:06)
[2022-04-03] MEDS ORDERED: DULO30CA49 PO (10:06)
[2022-04-03] MEDS ORDERED: DESV50TA18 PO (10:06)
[2022-04-03] MEDS ORDERED: AMLO-250 PO (10:06)
[2022-04-03] MEDS ORDERED: TIZA-186 PO (10:06)
[2022-04-03] MEDS ORDERED: LISI5TAB20 PO (10:06)
[2022-04-03] MEDS ORDERED: ALEN70TA80 PO (10:06)
[2022-04-03] MEDS ORDERED: LISI40TA9 PO (10:06)
[2022-04-03] MEDS ORDERED: OXYC9CAP PO (10:06)
[2022-04-03] MEDS ORDERED: QUET25TA35 PO (10:06)
== END 2022-04-03 10:15 | disposition home or self-care (01) ==
LOC: PREOP 05:40
PROVIDERS: ATTEND Surgery
DX: Z01.818 Encounter for other preprocedural examination (principal)

== ENCOUNTER 2022-04-10 10:05 | Day surgery (SDC) | payer MEDICARE, MEDICAID ==
[~2022-04-10] VITALS: Ht 165 cm; Wt 61.2 kg
[~2022-04-10 10:05] MED LIST changes: +ALEN70TA80 PO; +AMLO-250 PO; +DESV50TA18 PO; +DULO30CA49 PO; +LISI40TA9 PO; +LISI5TAB20 PO; +OXYC9CAP PO; +PRAM0.257 PO; +QUET25TA35 PO; +TIZA-186 PO
[2022-04-10] MEDS ORDERED: LACTATED RINGERS 1,000 ML IV STA (10:08)
[2022-04-10] MEDS ORDERED: LACTATED RINGERS 1,000 ML IV ONE (10:15)
[2022-04-10] MEDS ORDERED: LIDOCAINE JELLY 2% 6 ML SYRINGE MM PRN (10:15)
[2022-04-10 10:25] VITALS: BP 145/91
[2022-04-10] MEDS ORDERED: MIDAZOLAM 2 MG/2 ML (VERSED) VIAL ONE (10:31)
[2022-04-10] MEDS ORDERED: PROPOFOL INJECTION 50 ML IV ONE ×2 (11:02→11:33)
--- NOTE | 2022-04-10 11:08 | Progress Note-Pre Operative ---
Pre-Operative Progress Note Date of Available H&P: Apr 10, 2022 Date H&P Reviewed: Apr 10, 2022 Time H&P Reviewed: 10:30 History & Physical: No changes noted Pre-Operative Diagnosis: screening, FH colon ca TREVOR BEARDEN MD Apr 10, 2022 11:08
--- NOTE | 2022-04-10 11:10 | Discharge Inst-Surgical ---
D/C Lap Instructions-SULEIMAN Follow Up Activity as tolerated High Fiber Diet 25g or more per day Avoid Alcohol, Caffeine, Spicy [place] and Acid foods. Drink 64 fluid oz or more of fluids per day. Symptoms to Report: Fever over 101 degree F, Nausea/Vomiting If any problems/questions: Contact your physician or go to Emergency Room TREVOR BEARDEN MD Apr 10, 2022 11:09
[2022-04-10] MEDS ORDERED: ONDANSETRON 4 MG (ZOFRAN) ORAL DISSOLVE TAB PO PRN (11:15)
[2022-04-10] MEDS ORDERED: ONDANSETRON 4 MG/2 ML (SDV) Z0FRAN IVP PRN (11:15)
[2022-04-10 12:00] VITALS: BP 142/87
[2022-04-10 12:05] VITALS: BP 132/84
--- NOTE | 2022-04-10 12:11 | Progress Note-Post Operative ---
Post-Operative Progess Note Surgeon (s)/Cook Cashier Food Prep (s) Surgeon TREVOR BEARDEN MD Cook Cashier Food Prep: none Pre-Operative Diagnosis screening, FH colon ca Post-Operative Diagnosis mild chronic stage 2 ext and int hemorrhoids, pedunculated polyp ascending colon. Procedure & Operative Findings Date of Procedure 04/10/22 Procedure Performed/Findings colonoscopy with snare polypectomy Anesthesia Type mac Estimated Blood Loss Estimated blood loss (mL): minimal Specimens/Packing Specimens Removed asc colon polyp TREVOR BEARDEN MD Apr 10, 2022 12:11
[2022-04-10 12:25] VITALS: BP 143/88
--- NOTE | 2022-04-10 14:17 | Anesthesia-General Post-Op ---
MAC Patient Condition Mental Status/LOC: Same as Preop Cardiovascular: Satisfactory Nausea/Vomiting: Absent Respiratory: Satisfactory Pain: Controlled Complications: Absent Post Op Complications Complications None Follow Up Care/Instructions Patient Instructions None needed. Anesthesiology Discharge Order Discharge Order Patient is doing well, no complaints, stable vital signs, no apparent adverse anesthesia problems. No complications reported per nursing. MIRIAM AVERY CRNA Apr 10, 2022 14:17
--- NOTE | 2022-04-10 23:11 | OPERATIVE REPORT ---
DATE OF SERVICE: 04/10/2022 PREOPERATIVE DIAGNOSIS: Screening colonoscopy with positive Cologuard test. POSTOPERATIVE DIAGNOSES: Mild chronic stage II external, internal hemorrhoids, pedunculated polyp of the ascending colon, approximately 4 mm in size. PROCEDURE: Colonoscopy with snare polypectomy. SURGEON: Trevor Bearden MD. ANESTHESIA: Monitored anesthesia care. ESTIMATED BLOOD LOSS: Minimal. FINDINGS: Mild chronic stage II external, internal hemorrhoids, pedunculated polyp of the ascending colon, approximately 4 mm in size. DISPOSITION: The patient tolerated the procedure well. INDICATIONS: The patient is a 62-year-old male referred over to us for a screening colonoscopy. He states that he had a colonoscopy approximately 20 years ago and believes this to be normal. He states no major issues with diarrhea or constipation as well as no red blood per rectum, nor any dark tarry stools. He does report a family history of colon cancer with his mother being diagnosed with the disease. DESCRIPTION OF PROCEDURE: The patient was brought to the endoscopy suite and laid in the left lateral decubitus position. After adequate IV pain and sedative medications and monitored anesthesia care, a digital rectal examination was performed. Mild chronic stage II, external, internal hemorrhoids were identified, not actively edematous, nor inflamed, and no bleeding. Normal sphincter tone was felt and there were no palpable masses. Prostate gland was palpable and appeared normal. The endoscope was then intubated into the anus, rectum and gently insufflated. The endoscope was then advanced through the valve with fusion of the rectum with no polyps or neoplasms identified. We then proceeded through the sigmoid colon. There were no diverticulosis identified. The endoscope was then advanced through the means of the descending, transverse and ascending colon. At the ascending colon, a pedunculated polyp approximately 4 mm in size was identified and this was snared at the base using a wire loop and cautery with visualization and good hemostasis. The cecum appeared normal. The polyp was retrieved using the endoscope. No other lesions identified. The patient tolerated the procedure well. We will await the biopsy results. Due to his first-degree family history of colon cancer, we would recommend a minimum timeframe of 5 years for his next screening colonoscopy. However, if this polyp shows any villous component to the polyp, then we would recommend a followup colonoscopy in 3 years. Job ID: [id number] DocumentID: [id number] Dictated Date: 04/10/2022 12:04:23 Director Public Service Date: 04/10/2022 23:09:00 Dictated By: TREVOR BEARDEN MD
== END 2022-04-10 12:27 | disposition home or self-care (01) ==
LOC: ENDO 10:05
PROVIDERS: ATTEND Surgery
DX: D12.2 Benign neoplasm of ascending colon (principal); K64.1 Second degree hemorrhoids; K64.4 Residual hemorrhoidal skin tags; Z80.0 Family history of malignant neoplasm of digestive organs; F17.210 Nicotine dependence, cigarettes, uncomplicated

== ENCOUNTER → 2023-01-16 | Outpatient (CLI) | payer MEDICAID, MEDICARE ==
[~2023-01-16] MED LIST changes: +POTA-330 PO; -POTA-51 PO
--- NOTE | 2023-01-16 11:31 | Diagnostic Imaging Report ---
Examination: Cervical spine five views with bending. HISTORY: Neck pain. COMPARISON: 05/09/2020. FINDINGS: There has been a instrumented anterior fusion of C3-C5 and non-instrumented fusion of C5-C6. There is no motion of the fused segments with bending. There is no listhesis. No acute fracture is seen. IMPRESSION: 1. Long segment fusion of the cervical spine with no motion of the fused segments with bending. Dictated by: Dictated on workstation # [id number]
--- NOTE | 2023-01-16 11:56 | Diagnostic Imaging Report ---
EXAMINATION: Thoracic spine, three views. HISTORY: Back injury COMPARISON: None available. FINDINGS: Cervicothoracic junction is not well seen due to overlying soft tissues. Alignment is normal. Vertebral body heights are normal. There is mild disc height loss in the mid thoracic spine. IMPRESSION: 1. No fracture in the thoracic spine. Dictated by: Dictated on workstation # [id number]
== END ==
LOC: RAD 10:18
PROVIDERS: ATTEND Colon & Rectal Surgery
DX: M47.812 Spondylosis without myelopathy or radiculopathy, cervical region (principal); Z98.1 Arthrodesis status
CPT/HCPCS: 72050; 72072